=== PATIENT | female | born 1950 | race African-American/Black ===

== ENCOUNTER 2017-01-25 05:21 | Emergency (ER) | payer MEDICARE ==
[~2017-01-25] VITALS: Ht 165.1 cm; Wt 110.1 kg
[~2017-01-25 05:21] MED LIST: BRIM0.2S; CALA180T PO; DORZ1SOL2 OD; FORT500T3 PO; HYDR-3534 PO; HYDR-3535 PO; HYOS1SUB PO; IBUP800T23 PO; PROT40TA PO; ROXI5TAB4 PO; SIMV20 PO; SYNT125T PO; TIMO1SOL6 OP; TRIA.1%T TOP; VERA200C
[2017-01-25 05:40] VITALS: BP 206/107; PULSE 109; RESP 18; TEMP 99.2; O2SAT 96
[2017-01-25] MEDS ORDERED: METF500T PO (05:59)
[2017-01-25] MEDS ORDERED: ASPI1TAB69 PO (05:59)
[2017-01-25] MEDS ORDERED: SIMV20TA PO (06:00)
[2017-01-25] MEDS ORDERED: DICY20TA10 PO (06:00)
[2017-01-25] MEDS ORDERED: MELO-1 PO (06:01)
[2017-01-25] MEDS ORDERED: VERA1TAB17 PO (06:01)
[2017-01-25] MEDS ORDERED: LEVO-86 PO (06:03)
[2017-01-25] MEDS ORDERED: BRIM0.2S4 EACH EYE (06:04)
[2017-01-25] MEDS ORDERED: DORZ2SOL15 LEFT EYE (06:05)
[2017-01-25] MEDS ORDERED: CLOTCRE TOPICAL (06:08)
[2017-01-25] MEDS ORDERED: PROCHLORPERAZINE INJ 10 MG/2 ML VIAL IVS ONE (06:15)
[2017-01-25] MEDS ORDERED: SODIUM CHLOR 0.9% 1000 ML INJ 1,000 ML IV ONE (06:15)
[2017-01-25] MEDS ORDERED: diphenhydrAMINE HCL 50 MG/ML VIAL IV PUSH ONE (06:15)
[2017-01-25] MEDS ORDERED: PROM25TA5 PO (06:20)
--- NOTE | 2017-01-25 06:21 | PD ---
HPI . Vomiting Chief Complaint: GI Complaint Time Seen by Provider: 06:03 Travel History International Travel<30 days: No Contact w/Intl Traveler<30days: No Traveled to known affect area: No History of Present Illness HPI Patient presents saying that she's vomited about 12 times last 24 hours. She states that she had been constipated since some milk of magnesia yesterday. She subsequently developed loose stools and vomiting. She has had no fever. She states that she has IBS. [id number]: Abdominal DURATION: 24 hours TIMING: Continuously CONTEXT: Symptoms started after taking milk of magnesia constipation PFSH Past Medical History Hx Anticoagulant Therapy: Yes Arthritis: Yes Cancer: No Cardiovascular Problems: Yes COPD: Yes Diabetes: Yes Patient Takes Glucophage: Yes (01/23/17 at 0900) Diminished Hearing: No Endocrine: Yes Gastrointestinal Disorders: Yes (GERD, IRRATABLE BOWEL) Glaucoma: Yes Genitourinary: No Hepatitis: No Hiatal Hernia: No Hypertension: Yes Immune Disorder: No Musculoskeletal: Yes (ARTHRITIS) Neurologic: Yes (DEXTER'S PALSY, NEUROPATHY FINGER TIPS) Psychiatric: Yes (SEVERE CLAUSTRAPHOBIA/ ANXIETY) Reproductive: No Respiratory: Yes Thyroid Disease: Yes Tetanus Vaccination: > 5 Years Influenza Vaccination: No ?: Not Menopausal: Yes Past Surgical History AICD: No Joint Replacement: No Pacemaker: No Tonsillectomy: Yes Other Surgery: Yes Social History Alcohol Use: No Tobacco Use: No Substance Use: No Allergies-Medications (Allergen,Severity, Reaction): Coded Allergies: Morphine (Verified Allergy, Severe, 01/25/17) NAUSEA OR HIVES/ CAN'T REMEMBER Penicillin (Verified Allergy, Severe, 01/25/17) NAUSEA OR HIVES/ CAN'T REMEMBER Reported Meds & Prescriptions Reported Meds & Active Scripts Active Reported Clotrimazole-Betamethasone Topical (Betamethasone/Clotrimazole) 1-0.05% Cream 1 Applic TOPICAL BID PRN Dorzolamide-Timolol Opth Drops 22.3-6.8 Mg/Ml Soln 1 Drop LEFT EYE BID Brimonidine Opth Drops (Brimonidine Tartrate) 0.2% Soln 1 Drop EACH EYE BID Synthroid (Levothyroxine Sodium) 137 Mcg Tab 137 Mcg PO DAILY Meloxicam 15 Mg Tab 15 Mg PO DAILY PRN Verapamil ER 24 HR (Verapamil HCl) 240 Mg Tab 240 Mg PO HS Simvastatin 20 Mg Tab 20 Mg PO DAILY Dicyclomine (Dicyclomine HCl) 20 Mg Tab 20 Mg PO QID Aspirin 81 Mg Tabdr 81 Mg PO DAILY Metformin (Metformin HCl) 500 Mg Tab 500 Mg PO DAILY With a meal Review of Systems Except as stated in HPI: all other systems reviewed are Neg General / Constitutional: No: Fever, Chills Gastrointestinal: Positive: Nausea, Vomiting, Diarrhea, Abdominal Pain Genitourinary: No: Urgency, Frequency, Dysuria Physical Exam Narrative GENERAL: Healthy-appearing woman in no acute distress. SKIN: Warm and dry. HEAD: Atraumatic. Normocephalic. EYES: Pupils equal and round. ENT: No nasal bleeding or discharge. Mucous membranes pink and moist. NECK: Trachea midline. CARDIOVASCULAR: Regular rate and rhythm. Heart sounds are normal. RESPIRATORY: No accessory muscle use. Lungs are clear with full air movement throughout. GASTROINTESTINAL: Abdomen soft, non-tender, nondistended. MUSCULOSKELETAL: No obvious deformities. No edema. NEUROLOGICAL: Awake and alert. No obvious cranial nerve deficits. Motor grossly within normal limits. Normal speech. PSYCHIATRIC: Appropriate mood and affect; insight and judgment normal. Data Data Last Documented VS Vital Signs Date Time Temp Pulse Resp B/P Pulse Ox O2 Delivery O2 Flow Rate FiO2 01/25/17 05:40 99.2 109 18 206/107 96 Orders Sodium Chlor 0.9% 1000 Ml Inj (Ns 1000 M (01/25/17 06:15) Prochlorperazine Inj (Compazine Inj) (01/25/17 06:15) Diphenhydramine Inj (Benadryl Inj) (01/25/17 06:15) [facility] Medical Decision Making Medical Screen Exam Complete: Yes Emergency Medical Condition: Yes Differential Diagnosis Differential diagnosis includes but is not limited to viral gastritis, food poisoning, pancreatitis, pneumonia, hepatitis, acute coronary syndrome, Narrative Course Patient presents complaining with vomiting and diarrhea after taking milk of magnesia yesterday for constipation. I will give her a liter of fluid and some IV Compazine/Benadryl and then discharge her to home. Clinically, she is not dehydrated. She has a benign abdominal exam. Diagnosis Primary Impression: Gastroenteritis Patient Instructions: Gastroenteritis (DC), General Instructions Med/Other Pt SpecificInfo: Prescription(s) given Scripts Promethazine (Phenergan)25 Mg Tab25 Mg PO Q6H PRN (Nausea/Vomiting) #10 TAB Ref 0 Prov:Radha Beckman MD 01/25/17 Disposition: 01 DISCHARGE HOME Condition: Stable Radha Beckman MD Jan 25, 2017 06:20
[2017-01-25 06:40] VITALS: BP 164/97; PULSE 98; RESP 18; O2SAT 98
[2017-01-25 08:11] VITALS: BP 170/89
== END 2017-01-25 08:12 | disposition home or self-care (01) ==
LOC: PHED 05:21
DX: K52.9 Noninfective gastroenteritis and colitis, unspecified (principal); E11.9 Type 2 diabetes mellitus without complications; I10 Essential (primary) hypertension; J44.9 Chronic obstructive pulmonary disease, unspecified; M19.90 Unspecified osteoarthritis, unspecified site; Z79.01 Long term (current) use of anticoagulants
CPT/HCPCS: 96361; 96374; 96375; 99283; J0780; J1200; J7030

== ENCOUNTER 2017-01-26 20:45 | Inpatient (IN) | payer MEDICARE ==
[~2017-01-26] VITALS: Ht 165.1 cm; Wt 109.2 kg
[~2017-01-26 20:45] MED LIST changes: +ASPI1TAB69 PO; -BRIM0.2S; +BRIM0.2S4 EACH EYE; -CALA180T PO; +CLOTCRE TOPICAL; +DICY20TA10 PO; -DORZ1SOL2 OD; +DORZ2SOL15 LEFT EYE; -FORT500T3 PO; -HYDR-3534 PO; -HYDR-3535 PO; -HYOS1SUB PO; -IBUP800T23 PO; +LEVO-86 PO; +MELO-1 PO; +METF500T PO; +PROM25TA5 PO; -PROT40TA PO; -ROXI5TAB4 PO; -SIMV20 PO; +SIMV20TA PO; -SYNT125T PO; -TIMO1SOL6 OP; -TRIA.1%T TOP; +VERA1TAB17 PO; -VERA200C
[2017-01-26 20:57] VITALS: BP 156/126; PULSE 116; RESP 16; TEMP 98; O2SAT 98
[2017-01-26 23:31] VITALS: BP 95/62; PULSE 93; RESP 18; TEMP 98; O2SAT 94
--- NOTE | 2017-01-26 23:56 | PD ---
HPI Chief Complaint: GI Complaint Time Seen by Provider: 23:38 Travel History International Travel<30 days: No Contact w/Intl Traveler<30days: No Traveled to known affect area: No History of Present Illness HPI 66yo F with PMH of IBS, COPD presents to the ED with c/o black stool since yesterday. Pt also with generalized abdominal pain for 3 days and was seen here on 01/25/17 for this complaint. Pt was given compazine and benadryl and discharge with impression of gastroenteritis. +NBNB vomiting yesterday. Denies any fever, chest pain, sob, urinary complaints. States the black stool is watery. Denies any urinary complaints. Last colonscopy and endoscopy was 2012. PFSH Past Medical History Hx Anticoagulant Therapy: Yes Arthritis: Yes Cancer: No Cardiovascular Problems: Yes (HTN) COPD: Yes Diabetes: Yes (on metformin) Patient Takes Glucophage: Yes Diminished Hearing: No Endocrine: Yes Gastrointestinal Disorders: Yes (GERD, IRRATABLE BOWEL) Glaucoma: Yes Genitourinary: No Hepatitis: No Hiatal Hernia: No Hypertension: Yes Immune Disorder: No Medical other: No Musculoskeletal: Yes (ARTHRITIS) Neurologic: Yes (DEXTER'S PALSY, NEUROPATHY FINGER TIPS) Psychiatric: Yes (SEVERE CLAUSTRAPHOBIA/ ANXIETY) Reproductive: No Respiratory: Yes (copd) Thyroid Disease: Yes Tetanus Vaccination: Unknown Influenza Vaccination: No ?: Not Menopausal: Yes Past Surgical History AICD: No Joint Replacement: No Pacemaker: No Tonsillectomy: Yes Other Surgery: Yes Social History Alcohol Use: No Tobacco Use: No Substance Use: No Allergies-Medications (Allergen,Severity, Reaction): Coded Allergies: Morphine (Verified Allergy, Severe, 01/25/17) NAUSEA OR HIVES/ CAN'T REMEMBER Penicillin (Verified Allergy, Severe, 01/25/17) NAUSEA OR HIVES/ CAN'T REMEMBER Reported Meds & Prescriptions Reported Meds & Active Scripts Active Phenergan (Promethazine HCl) 25 Mg Tab 25 Mg PO Q6H PRN Reported Clotrimazole-Betamethasone Topical (Betamethasone/Clotrimazole) 1-0.05% Cream 1 Applic TOPICAL BID PRN Dorzolamide-Timolol Opth Drops 22.3-6.8 Mg/Ml Soln 1 Drop LEFT EYE BID Brimonidine Opth Drops (Brimonidine Tartrate) 0.2% Soln 1 Drop EACH EYE BID Synthroid (Levothyroxine Sodium) 137 Mcg Tab 137 Mcg PO DAILY Meloxicam 15 Mg Tab 15 Mg PO DAILY PRN Verapamil ER 24 HR (Verapamil HCl) 240 Mg Tab 240 Mg PO HS Simvastatin 20 Mg Tab 20 Mg PO DAILY Dicyclomine (Dicyclomine HCl) 20 Mg Tab 20 Mg PO QID Aspirin 81 Mg Tabdr 81 Mg PO DAILY Metformin (Metformin HCl) 500 Mg Tab 500 Mg PO DAILY With a meal Review of Systems Except as stated in HPI: all other systems reviewed are Neg Physical Exam Narrative GENERAL: 66yo F not in distress. SKIN: Warm and dry. HEAD: Atraumatic. Normocephalic. EYES: Pupils equal and round. No scleral icterus. No injection or drainage. ENT: No nasal bleeding or discharge. Mucous membranes pink and moist. NECK: Trachea midline. No JVD. CARDIOVASCULAR: Regular rate and rhythm. No murmur appreciated. RESPIRATORY: No accessory muscle use. Clear to auscultation. Breath sounds equal bilaterally. GASTROINTESTINAL: Abdomen soft, +TTP epigastric region. No rebound tenderness or guarding. RECTAL: Small amount of black stool, +Hemaprompt. MUSCULOSKELETAL: No obvious deformities. No clubbing. No cyanosis. No edema. NEUROLOGICAL: Awake and alert. No obvious cranial nerve deficits. Motor grossly within normal limits. Normal speech. PSYCHIATRIC: Appropriate mood and affect; insight and judgment normal. Data Data Last Documented VS Vital Signs Date Time Temp Pulse Resp B/P Pulse Ox O2 Delivery O2 Flow Rate FiO2 01/27/17 04:37 98.0 82 20 106/75 100 Room Air Orders Basic Metabolic Panel (Bmp) (01/26/17 23:47) Complete Blood Count With Diff (01/26/17 23:47) Lipase (01/26/17 23:47) Prothrombin Time / Inr (Pt) (01/26/17 23:47) Act Partial Throm Time (Ptt) (01/26/17 23:47) Urinalysis - C+S If Indicated (01/26/17 23:47) Type And Screen (01/26/17 23:47) Ecg Monitoring (01/26/17 23:47) Iv Access Insert/Monitor (01/26/17 23:47) Oximetry (01/26/17 23:47) Ondansetron Inj (Zofran Inj) (01/27/17 00:00) Sodium Chloride 0.9% Flush (Ns Flush) (01/27/17 00:00) Pantoprazole Inj (Protonix Inj) (01/27/17 00:00) Pantoprazole Inj (Protonix Inj) (01/27/17 00:00) Electrocardiogram (01/26/17 ) Sodium Chlor 0.9% 1000 Ml Inj (Ns 1000 M (01/27/17 00:00) Consult Gastroenterology (01/26/17 ) (Hub Use Only)Inp Phy Cons/Ref (01/27/17 ) Ct Abd/Pel W/O Iv Contrast (01/26/17 ) Blood Culture (01/27/17 02:37) Lactic Acid (01/27/17 02:37) Cath For Specimen (01/27/17 02:45) Ckmb (Isoenzyme) Profile (01/27/17 00:20) Hepatic Functional Panel (01/27/17 00:20) Magnesium (Mg) (01/27/17 00:20) Troponin I (01/27/17 00:20) CKMB (01/27/17 00:20) CKMB% (01/27/17 00:20) Chest, Single Ap (01/27/17 ) Aztreonam Inj (Azactam Inj) (01/27/17 05:00) Urine Culture (01/27/17 04:11) Metronidazole 500 Mg Inj (Flagyl 500 Mg (01/27/17 05:00) Vancomycin Inj (Vancomycin Inj) (01/27/17 05:00) Sodium Chlor 0.9% 1000 Ml Inj (Ns 1000 M (01/27/17 05:00) Admit Order (Ed Use Only) (01/27/17 ) ^ Saline Lock (01/27/17 05:26) Resp Oxygen Jaun C Titrat 1-4 L (01/27/17 ) ^ Notify Dr: Other (01/27/17 05:26) Sodium Chloride 0.9% Flush (Ns Flush) (01/27/17 09:00) Sodium Chloride 0.9% Flush (Ns Flush) (01/27/17 05:30) Labs Laboratory Tests Test 01/27/17 01/27/17 01/27/17 00:20 03:55 04:11 White Blood Count 25.5 TH/MM3 Red Blood Count 4.80 MIL/MM3 Hemoglobin 11.7 GM/DL Hematocrit 36.4 % Mean Corpuscular Volume 75.9 FL Mean Corpuscular Hemoglobin 24.4 PG Mean Corpuscular Hemoglobin 32.2 % Concent Red Cell Distribution Width 17.8 % Platelet Count 317 TH/MM3 Mean Platelet Volume 9.3 FL Neutrophils (%) (Auto) % Lymphocytes (%) (Auto) % Monocytes (%) (Auto) % Eosinophils (%) (Auto) % Basophils (%) (Auto) % Neutrophils # (Auto) TH/MM3 Lymphocytes # (Auto) TH/MM3 Monocytes # (Auto) TH/MM3 Eosinophils # (Auto) TH/MM3 Basophils # (Auto) TH/MM3 CBC Comment AUTO DIFF Differential Total Cells 100 Counted Neutrophils % (Manual) 73 % Lymphocytes % 19 % Monocytes % 6 % Basophils % 2 % Neutrophils # (Manual) 18.6 TH/MM3 Differential Comment FINAL DIFF MANUAL Platelet Estimate NORMAL Platelet Morphology Comment CLUMPED Prothrombin Time 10.7 SEC Prothromb Time International 1.0 RATIO Ratio Activated Partial 22.2 SEC Thromboplast Time Sodium Level 137 MEQ/L Potassium Level 4.0 MEQ/L Chloride Level 98 MEQ/L Carbon Dioxide Level 26.6 MEQ/L Anion Gap 12 MEQ/L Blood Urea Nitrogen 67 MG/DL Creatinine 2.30 MG/DL Estimat Glomerular Filtration 26 ML/MIN Rate Random Glucose 113 MG/DL Calcium Level 9.4 MG/DL Magnesium Level 2.0 MG/DL Total Bilirubin 0.3 MG/DL Direct Bilirubin 0.1 MG/DL Indirect Bilirubin 0.2 MG/DL Aspartate Amino Transf 17 U/L (AST/SGOT) Alanine Aminotransferase 15 U/L (ALT/SGPT) Alkaline Phosphatase 82 U/L Total Creatine Kinase 350 U/L Creatine Kinase MB 3.2 NG/ML Creatine Kinase MB % 0.9 % Troponin I 0.19 NG/ML Total Protein 7.2 GM/DL Albumin 3.6 GM/DL Lipase 135 U/L Blood Type O NEGATIVE Antibody Screen NEGATIVE Lactic Acid Level 1.7 mmol/L Urine Color YELLOW Urine Turbidity MOD Urine pH 5.5 Urine Specific [place] 1.021 Urine Protein 30 mg/dL Urine Glucose (UA) NEG mg/dL Urine Ketones TRACE mg/dL Urine Occult Blood TRACE Urine Nitrite NEG Urine Bilirubin NEG Urine Leukocyte Esterase SMALL Urine RBC 0-3 /hpf Urine WBC 15-19 /hpf Urine Squamous Epithelial 6-8 /hpf Cells Urine Amorphous Sediment MOD Urine Bacteria FEW /hpf Urine Hyaline Casts 25-49 /lpf Urine Mucus MOD /lpf Microscopic Urinalysis Comment CULTURE INDICATED MDM Medical Decision Making Medical Screen Exam Complete: Yes Emergency Medical Condition: Yes Differential Diagnosis GI bleed secondary to AVM vs. diverticulitis vs. infectious colitis Narrative Course 66yo F with abdominal pain and black stool. Positive hemaprompt. Will obtain labs, EKG, UA, CTa/p and start IV protonix bolus and then drip. Abdominal exam significant for mild tenderness in epigastric region. BP is low at 95/62. HR 93. IVF NS ordered. Pt was seen at end of my shift so care is transferred to next team Dr. Moss. HemaPrompt Point of Care Internal Pos. & Neg. Controls: Passed Fecal Specimen Occult Blood: Positive Diagnosis Primary Impression: GI bleed Qualified Code: K92.2 - Gastrointestinal hemorrhage, unspecified gastrointestinal hemorrhage type Admitting Information Admitting Physician Requests: Admit Kelly Grijalva DO Jan 26, 2017 23:56
[2017-01-27] VITALS (9 sets, daily range): BP systolic 106–185; BP diastolic 57–81; PULSE 80–104; RESP 16–20; TEMP 97–98.1; O2SAT 95–100
[2017-01-27] MEDS ORDERED: SODIUM CHLOR 0.9% 1000 ML INJ 1,000 ML IV ONE
[2017-01-27] MEDS ORDERED: PANTOPRAZOLE INJ 80 MG in SODIUM CHLORIDE 0.9% INJ 35 ML IV ONE ×2
[2017-01-27] MEDS ORDERED: ONDANSETRON HCL 4 MG/2 ML VIAL IVP ONE
--- NOTE | 2017-01-27 00:07 | PD ---
Physical Exam Date Seen by Provider: Jan 27, 2017 Time Seen by Provider: 00:06 Narrative Accepted in transfer of care from Dr. Grijalva GENERAL: Well-developed well-nourished female in no acute distress no respiratory distress SKIN: Warm and dry. HEAD: Normocephalic. EYES: No scleral icterus. No injection or drainage. NECK: Supple, trachea midline. No JVD or lymphadenopathy. CARDIOVASCULAR: Regular rate and rhythm without murmurs, gallops, or rubs. RESPIRATORY: Breath sounds equal bilaterally. No accessory muscle use. GASTROINTESTINAL: Abdomen soft, non-tender, nondistended. MUSCULOSKELETAL: No cyanosis, or edema. BACK: Nontender without obvious deformity. No CVA tenderness. Data Data Last Documented VS Vital Signs Date Time Temp Pulse Resp B/P Pulse Ox O2 Delivery O2 Flow Rate FiO2 01/27/17 04:37 98.0 82 20 106/75 100 Room Air Orders Basic Metabolic Panel (Bmp) (01/26/17 23:47) Complete Blood Count With Diff (01/26/17 23:47) Lipase (01/26/17 23:47) Prothrombin Time / Inr (Pt) (01/26/17 23:47) Act Partial Throm Time (Ptt) (01/26/17 23:47) Urinalysis - C+S If Indicated (01/26/17 23:47) Type And Screen (01/26/17 23:47) Ecg Monitoring (01/26/17 23:47) Iv Access Insert/Monitor (01/26/17 23:47) Oximetry (01/26/17 23:47) Ondansetron Inj (Zofran Inj) (01/27/17 00:00) Sodium Chloride 0.9% Flush (Ns Flush) (01/27/17 00:00) Pantoprazole Inj (Protonix Inj) (01/27/17 00:00) Pantoprazole Inj (Protonix Inj) (01/27/17 00:00) Electrocardiogram (01/26/17 ) Sodium Chlor 0.9% 1000 Ml Inj (Ns 1000 M (01/27/17 00:00) Consult Gastroenterology (01/26/17 ) (Hub Use Only)Inp Phy Cons/Ref (01/27/17 ) Ct Abd/Pel W/O Iv Contrast (01/26/17 ) Blood Culture (01/27/17 02:37) Lactic Acid (01/27/17 02:37) Cath For Specimen (01/27/17 02:45) Ckmb (Isoenzyme) Profile (01/27/17 00:20) Hepatic Functional Panel (01/27/17 00:20) Magnesium (Mg) (01/27/17 00:20) Troponin I (01/27/17 00:20) CKMB (01/27/17 00:20) CKMB% (01/27/17 00:20) Chest, Single Ap (01/27/17 ) Aztreonam Inj (Azactam Inj) (01/27/17 05:00) Urine Culture (01/27/17 04:11) Metronidazole 500 Mg Inj (Flagyl 500 Mg (01/27/17 05:00) Vancomycin Inj (Vancomycin Inj) (01/27/17 05:00) Sodium Chlor 0.9% 1000 Ml Inj (Ns 1000 M (01/27/17 05:00) Admit Order (Ed Use Only) (01/27/17 ) ^ Saline Lock (01/27/17 05:26) Resp Oxygen Jaun C Titrat 1-4 L (01/27/17 ) ^ Notify Dr: Other (01/27/17 05:26) Sodium Chloride 0.9% Flush (Ns Flush) (01/27/17 09:00) Sodium Chloride 0.9% Flush (Ns Flush) (01/27/17 05:30) Labs Laboratory Tests Test 01/27/17 01/27/17 01/27/17 00:20 03:55 04:11 White Blood Count 25.5 TH/MM3 Red Blood Count 4.80 MIL/MM3 Hemoglobin 11.7 GM/DL Hematocrit 36.4 % Mean Corpuscular Volume 75.9 FL Mean Corpuscular Hemoglobin 24.4 PG Mean Corpuscular Hemoglobin 32.2 % Concent Red Cell Distribution Width 17.8 % Platelet Count 317 TH/MM3 Mean Platelet Volume 9.3 FL Neutrophils (%) (Auto) % Lymphocytes (%) (Auto) % Monocytes (%) (Auto) % Eosinophils (%) (Auto) % Basophils (%) (Auto) % Neutrophils # (Auto) TH/MM3 Lymphocytes # (Auto) TH/MM3 Monocytes # (Auto) TH/MM3 Eosinophils # (Auto) TH/MM3 Basophils # (Auto) TH/MM3 CBC Comment AUTO DIFF Differential Total Cells 100 Counted Neutrophils % (Manual) 73 % Lymphocytes % 19 % Monocytes % 6 % Basophils % 2 % Neutrophils # (Manual) 18.6 TH/MM3 Differential Comment FINAL DIFF MANUAL Platelet Estimate NORMAL Platelet Morphology Comment CLUMPED Prothrombin Time 10.7 SEC Prothromb Time International 1.0 RATIO Ratio Activated Partial 22.2 SEC Thromboplast Time Sodium Level 137 MEQ/L Potassium Level 4.0 MEQ/L Chloride Level 98 MEQ/L Carbon Dioxide Level 26.6 MEQ/L Anion Gap 12 MEQ/L Blood Urea Nitrogen 67 MG/DL Creatinine 2.30 MG/DL Estimat Glomerular Filtration 26 ML/MIN Rate Random Glucose 113 MG/DL Calcium Level 9.4 MG/DL Magnesium Level 2.0 MG/DL Total Bilirubin 0.3 MG/DL Direct Bilirubin 0.1 MG/DL Indirect Bilirubin 0.2 MG/DL Aspartate Amino Transf 17 U/L (AST/SGOT) Alanine Aminotransferase 15 U/L (ALT/SGPT) Alkaline Phosphatase 82 U/L Total Creatine Kinase 350 U/L Creatine Kinase MB 3.2 NG/ML Creatine Kinase MB % 0.9 % Troponin I 0.19 NG/ML Total Protein 7.2 GM/DL Albumin 3.6 GM/DL Lipase 135 U/L Blood Type O NEGATIVE Antibody Screen NEGATIVE Lactic Acid Level 1.7 mmol/L Urine Color YELLOW Urine Turbidity MOD Urine pH 5.5 Urine Specific [place] 1.021 Urine Protein 30 mg/dL Urine Glucose (UA) NEG mg/dL Urine Ketones TRACE mg/dL Urine Occult Blood TRACE Urine Nitrite NEG Urine Bilirubin NEG Urine Leukocyte Esterase SMALL Urine RBC 0-3 /hpf Urine WBC 15-19 /hpf Urine Squamous Epithelial 6-8 /hpf Cells Urine Amorphous Sediment MOD Urine Bacteria FEW /hpf Urine Hyaline Casts 25-49 /lpf Urine Mucus MOD /lpf Microscopic Urinalysis Comment CULTURE INDICATED MDM Medical Record Reviewed: Yes Supervised Visit with JUANIAT: No Interpretation(s) EKG: Normal sinus rhythm rate 98 left bundle branch block Differential Diagnosis Accepted in transfer of care from Dr. Grijalva; please refer to her dictation Narrative Course Accepted in transfer of care from Dr. Grijalva with plan to admit for GI bleed; labs pending Patient identified to have elevated renal function normal saline bolus administered Transient hypotension improved with IV fluid bolus Patient was leukocytosis and stable hemoglobin No further vomiting or diarrhea in the emergency department Lab values resulted identified to have elevated troponin I of 0.19, must consider elevation may reflect renal function will be affected by renal function no comparison renal function identified; no chest pain no shortness of breath history of left bundle branch block; patient does have risk factor for heart disease having diabetes presenting with atypical ACS/angina however in view of Hemoccult positive stool with black stools by history concern for GI bleed addressed with Protonix and will obtain serial hemoglobins as well as serial cardiac enzymes Case discussed with on-call medicine physician with plan to admit for ongoing IV fluid hydration IV antibiotic reassessment of renal function cardiac enzymes and hemoglobin with consult to GI in a.m. antibiotics administered presumptively. Patient clinically improved sitting at bedside and able to ambulate independently to bathroom; No further nausea vomiting or diarrhea; patient is aware of plan for admission for further management and is agreeable to the admission plan. Critical Care Narrative Aggregate critical care time was 50 minutes. Time to perform other separately billable procedures was not included in the critical care time. My time did not include minutes spent treating any other patients simultaneously or on activities that did not directly contribute to the patient's treatment. The services I provided to this patient were to treat and/or prevent clinically significant deterioration that could result in: Septic shock, GI bleed, arrhythmia, I provided critical care services requiring my management, as noted below: Chart data review, documentation time, medication orders and management, vital sign assessments/reviewing monitor data, ordering and reviewing lab tests, ordering and interpreting/reviewing x-rays and diagnostic studies, care of the patient and discussion of the patient with the admitting physicians. Sepsis Criteria SIRS Criteria (2 or more): Heart rate over 90, WBC > 08415, < 4000 or > 10% bands Sepsis Criteria (SIRS+source): Infect source susp/known Physician Communication Physician Communication discussed with Dr Prado --will admit to [facility] to [facility] Diagnosis Primary Impression: Leukocytosis Additional Impressions: Acute kidney injury Elevated troponin I level Gastroenteritis GI bleed History of left bundle branch block (LBBB) Sepsis UTI (urinary tract infection) Admitting Information Admitting Physician Requests: Admit Abi Moss MD Jan 27, 2017 00:07
[2017-01-27 00:56] LABS: HEMATOCRIT 36.4 % (35.0-46.0); MEAN CELL VOLUME 75.9 FL (80.0-100.0); MEAN CORPUSCULAR HEMOGLOBIN 24.4 PG (27.0-34.0); MEAN CORPUSCULAR HGB CONC 32.2 % (32.0-36.0); PLATELET COUNT 317 TH/MM3 (150-450); RED CELL DISTRIBUTION WIDTH 17.8 % (11.6-17.2); WHITE BLOOD COUNT 25.5 TH/MM3 (4.0-11.0)
[2017-01-27 00:58] LABS: HEMO FLAGS AUTO DIFF
[2017-01-27 00:59] LABS: BICARBONATE 26.6 MEQ/L (21.0-32.0)
[2017-01-27 01:01] LABS: APTT (PATIENT) 22.2 SEC (24.3-30.1); PROTHROMBIN TIME - PATIENT 10.7 SEC (9.8-11.6)
[2017-01-27] MEDS: PANTOPRAZOLE INJ 80 MG in SODIUM CHLORIDE 0.9% INJ 100 ML IV SCH ×3 (01:02→22:20)
[2017-01-27 01:24] LABS: BASOPHILS 2 % (0-2); NEUTROPHIL # MANUAL DIFF 18.6 TH/MM3 (1.8-7.7); POLYS (SEG NEUTROPHILS) 73 % (16-70); WBC DIFF SAMPLE 100
[2017-01-27 01:26] LABS: PLATELET ESTIMATE SMEAR NORMAL (NORMAL); PLATELET MORPHOLOGY CLUMPED (NORMAL); SCAN/DIFF FINAL DIFF MANUAL
--- NOTE | 2017-01-27 02:19 | RADHPO ---
EXAM DATE/TIME: 01/27/2017 01:25 This report includes an Addendum and supersedes previous reports for this exam. [facility] COMPARISON: No previous studies available for comparison. INDICATIONS : Abdominal pain. Black stool. ORAL CONTRAST: No oral contrast ingested. RADIATION DOSE: 22.25 CTDIvol (mGy) MEDICAL HISTORY : Gastroesophageal reflux disease. Irritable bowel syndrome. Hypertension.Diabetes. Chronic obstructive pulmonary disease. SURGICAL HISTORY : None. ENCOUNTER: Initial ACUITY: 3 days PAIN SCALE: 8/10 LOCATION: Bilateral Abdomen. TECHNIQUE: Volumetric scanning of the abdomen and pelvis was performed. Using automated exposure control and ad justment of the mA and/or kV according to patient size, radiation dose was kept as low as reasonably achievable to obtain optimal diagnostic quality images. FINDINGS: LOWER LUNGS: 9 mm x 7 mm pulmonary parenchymal nodule in the left lower lung on image #5. LIVER: Homogeneous density without lesion. There is no dilation of the biliary tree. No calcified gallston es. SPLEEN: Normal size without lesion. PANCREAS: Mild indistinctness of the pancreatic body indicating possible early findings of acute pancreatitis. No fluid collections. KIDNEYS: Punctate nonobstructing calculus in the upper pole on the right. No evidence of hydronephrosis. ADRENAL GLANDS: 2.1 cm left adrenal nodule with negative Hounsfield unit values indicating an adenoma. VASCULAR: Aortic calcification. Normal diameter. BOWEL/MESENTERY: Hiatal hernia, small. Scattered colonic diverticula. No evidence of acute diverticulitis. Appendix wi thin normal limits. No free air or free fluid. ABDOMINAL WALL: Within normal limits. RETROPERITONEUM: There is no lymphadenopathy. BLADDER: Nondistended. The REPRODUCTIVE: Within normal limits. INGUINAL: There is no lymphadenopathy or hernia. MUSCULOSKELETAL: Prominent arthrosis of the lower lumbar spine facet joints. CONCLUSION: 1. Mild indistinctness of the pancreatic body indicating possible acute pancreatitis. 2. Nonobstructing punctate right renal calculus. 3. Small hiatal hernia. 4. Colonic diverticula but no evidence of acute diverticulitis. 5. Prominent lumbar spine facet arthrosis. Lew Norwood MD on January 27, 2017 at 2:07 Board Certified Radiologist. This report was verified electronically. ADDENDUM: 9 mm nodular density in the left lung base as mentioned in the findings. Recommend three-month follow up chest CT without contrast. Lew Norwood MD on January 27, 2017 at 4:39 Board Certified Radiologist. This report was verified electronically.
[2017-01-27 03:02] LABS: TOTAL BILIRUBIN ADULT 0.3 MG/DL (0.2-1.0)
[2017-01-27 03:03] LABS: INDIRECT BILIRUBIN 0.2 MG/DL (0.0-0.8)
[2017-01-27 03:15] LABS: CKMB 3.2 NG/ML (0.5-3.6)
[2017-01-27 04:48] LABS: BLOOD, URINE TRACE (NEG); GLUCOSE,URINE NEG (NEG); KETONE, URINE TRACE mg/dL (NEG); NITRITE,URINE NEG (NEG); PH, URINE 5.5 (5.0-8.5)
[2017-01-27 04:57] LABS: URINE COLOR YELLOW (YELLW/STRAW)
[2017-01-27 04:58] LABS: MUCUS URINE MOD /lpf (OCC)
[2017-01-27 04:59] LABS: WBC, URINE 15-19 /hpf (0-5)
[2017-01-27 05:00] LABS: BACTERIA, URINE FEW /hpf; COMMENT (UR) CULTURE INDICATED; CULTURE IF INDICATED CULTURE INDICATED; RBC, URINE 0-3 /hpf (0-3)
[2017-01-27] MEDS ORDERED: metroNIDAZOLE 500 MG INJ 100 ML IV ONE (05:00)
[2017-01-27] MEDS ORDERED: AZTREONAM INJ 2,000 MG in SODIUM CHLORIDE 0.9% INJ 100 ML IV ONE (05:00)
[2017-01-27] MEDS ORDERED: VANCOMYCIN INJ 1,000 MG in SODIUM CHLOR 0.9% 250 ML INJ 250 ML IV ONE (05:00)
[2017-01-27] MEDS ORDERED: SODIUM CHLORIDE 0.9% FLUSH 5 ML FLUSH IVF PRN ×2 (05:30)
[2017-01-27] MEDS ORDERED: ACETAMINOPHEN 325 MG TAB PO PRN (05:30)
[2017-01-27] MEDS ORDERED: NALOXONE HCL 0.4 MG/ML AMP IV PRN (05:30)
[2017-01-27] MEDS ORDERED: ONDANSETRON HCL 4 MG/2 ML VIAL IVP PRN (05:30)
[2017-01-27] MEDS ORDERED: SODIUM CHLORIDE 0.9% FLUSH 5 ML FLUSH FLUSH PRN (05:30)
[2017-01-27] MEDS: SODIUM CHLOR 0.9% 1000 ML INJ 1,000 ML IV SCH ×4 (05:41→22:20)
--- NOTE | 2017-01-27 05:46 | RADHPO ---
EXAM DATE/TIME: 01/27/2017 05:34 [place] COMPARISON: CHEST SINGLE AP, December 03, 2012, 14:11. INDICATIONS : Nausea and vomiting. MEDICAL HISTORY : Chronic obstructive pulmonary disease. Gastroesophageal reflux disease. Diabetes mellitus type II. Hypertension. SURGICAL HISTORY : None. ENCOUNTER: Initial ACUITY: 1 day PAIN SCORE: 4/10 LOCATION: Bilateral chest FINDINGS: Single AP view of the chest. The lungs are clear. Cardiomediastinal silhouette within normal limits. No evidence of pleural effusion or pneumothorax. CONCLUSION: No acute cardiopulmonary disease identified. . Lew Norwood MD on January 27, 2017 at 5:43 Board Certified Radiologist. This report was verified electronically.
[2017-01-27 07:23] LABS: CKMB 3.7 NG/ML (0.5-3.6)
[2017-01-27] MEDS ORDERED: SODIUM CHLORIDE 0.9% FLUSH 5 ML FLUSH IVF SCH (09:00)
[2017-01-27] MEDS: SODIUM CHLORIDE 0.9% FLUSH 5 ML FLUSH FLUSH SCH ×2 (09:19→21:00)
[2017-01-27] MEDS ORDERED: DEXTROSE 50% IN WATER 50 ML VIAL(D50) IV PUSH PRN (12:00)
[2017-01-27] MEDS ORDERED: GLUCAGON 1 MG/ML VIAL OTHER PRN (12:00)
--- NOTE | 2017-01-27 12:07 | HHI.HP ---
HPI Service [facility] Hospitalists Primary Care Physician Non-Staff Admission Diagnosis sepsis; uti; KARLI; elevated troponinI Diagnoses: (1) Sepsis (2) UTI (urinary tract infection) (3) GI bleed (4) Elevated troponin I level (5) Acute kidney injury (6) Hypertension (7) Hypothyroid (8) Diabetes mellitus type II, controlled Chief Complaint: Generalized malaise and abdominal pain Travel History International Travel<30 Days: No Contact w/Intl Traveler <30 Da: No Traveled to Known Affected Are: No Sepsis Criteria SIRS Criteria (2 or more): Heart rate over 90, WBC > 40982, < 4000 or > 10% bands Sepsis Criteria (SIRS+source): Infect source susp/known Criteria Outcome: Meets SIRS criteria History of Present Illness 66 year-old -Malaysian female with a history of IBD, glaucoma and recent GI bleed discharged from [facility] ED on 01/25/17 return for evaluation of generalized malaise, abdominal pain related 6/10 in intensity of several day duration without any associated emesis, diarrhea. She had Hemoccult-positive for which GI was consulted. Her last colonoscopy 2012. Ago patient denies any urinary frequency and dysuria she was found to have abnormal UA. Patient denies any recent febrile episode however was found to have elevated white blood cell count. Review of Systems Other 12 systems reviewed and are negative except for the ones mentioned in history of present illness Past Family Social History Past Medical History Arthritis: Yes COPD: Yes Diabetes: Yes (on metformin) Endocrine: Yes Gastrointestinal Disorders: Yes (GERD, IBD) Glaucoma: Yes Hypertension: Yes Musculoskeletal: Yes (ARTHRITIS) Neurologic: Yes (DEXTER'S PALSY, NEUROPATHY FINGER TIPS) Psychiatric: Yes (SEVERE CLAUSTRAPHOBIA/ ANXIETY) Thyroid Disease: Yes Past Surgical History Left knee repair Tonsillectomy: Yes Reported Medications Phenergan (Promethazine HCl) 25 Mg Tab 25 Mg PO Q6H PRN Reported Clotrimazole-Betamethasone Topical (Betamethasone/Clotrimazole) 1-0.05% Cream 1 Applic TOPICAL BID PRN Dorzolamide-Timolol Opth Drops 22.3-6.8 Mg/Ml Soln 1 Drop LEFT EYE BID Brimonidine Opth Drops (Brimonidine Tartrate) 0.2% Soln 1 Drop EACH EYE BID Synthroid (Levothyroxine Sodium) 137 Mcg Tab 137 Mcg PO DAILY Meloxicam 15 Mg Tab 15 Mg PO DAILY PRN Verapamil ER 24 HR (Verapamil HCl) 240 Mg Tab 240 Mg PO HS Simvastatin 20 Mg Tab 20 Mg PO DAILY Dicyclomine (Dicyclomine HCl) 20 Mg Tab 20 Mg PO QID Aspirin 81 Mg Tabdr 81 Mg PO DAILY Metformin (Metformin HCl) 500 Mg Tab 500 Mg PO DAILY With a meal Allergies: Coded Allergies: Morphine (Verified Allergy, Severe, 01/25/17) NAUSEA OR HIVES/ CAN'T REMEMBER Penicillin (Verified Allergy, Severe, 01/25/17) NAUSEA OR HIVES/ CAN'T REMEMBER Family History Denies any family history of heart disease, cancer Social History Alcohol Use: No Tobacco Use: No Substance Use: No Physical Exam Vital Signs Vital Signs Date Time Temp Pulse Resp B/P Pulse Ox O2 Delivery O2 Flow Rate FiO2 01/27/17 10:17 100 21 01/27/17 09:15 104 16 128/60 100 Room Air 01/27/17 07:30 98.1 94 16 111/57 100 Room Air 01/27/17 07:29 16 01/27/17 05:43 98 21 01/27/17 04:37 98.0 82 20 106/75 100 Room Air 01/27/17 00:30 95 18 120/74 95 Room Air 01/26/17 23:34 18 01/26/17 23:31 98.0 93 18 95/62 94 01/26/17 20:57 98.0 116 16 156/126 98 Room Air Physical Exam GENERAL: This is a well-nourished, well-developed patient, in no apparent distress. SKIN: No rashes, ecchymoses or lesions. Cool and dry. HEAD: Atraumatic. Normocephalic. No temporal or scalp tenderness. EYES: Pupils equal round and reactive. Extraocular motions intact. No scleral icterus. No injection or drainage. ENT: Nose without bleeding, purulent drainage or septal hematoma. Throat without erythema, tonsillar hypertrophy or exudate. Uvula midline. Airway patent. NECK: Trachea midline. No JVD or lymphadenopathy. Supple, nontender, no meningeal signs. CARDIOVASCULAR: Regular rate and rhythm without murmurs, gallops, or rubs. RESPIRATORY: Clear to auscultation. Breath sounds equal bilaterally. No wheezes , rales, or rhonchi. GASTROINTESTINAL: Abdomen soft, non-tender, nondistended. No hepato-splenomegaly , or palpable masses. No guarding. MUSCULOSKELETAL: Extremities without clubbing, cyanosis, or edema. No joint tenderness, effusion, or edema noted. No calf tenderness. Negative Homans sign bilaterally. NEUROLOGICAL: Awake and alert. Cranial nerves II through XII intact. Motor and sensory grossly within normal limits. Five out of 5 muscle strength in all muscle groups. Normal speech. Laboratory Laboratory Tests Test 01/27/17 01/27/17 01/27/17 01/27/17 00:20 03:55 04:11 06:00 White Blood Count 25.5 Red Blood Count 4.80 Hemoglobin 11.7 Hematocrit 36.4 Mean Corpuscular Volume 75.9 Mean Corpuscular Hemoglobin 24.4 Mean Corpuscular Hemoglobin 32.2 Concent Red Cell Distribution Width 17.8 Platelet Count 317 Mean Platelet Volume 9.3 Neutrophils (%) (Auto) Lymphocytes (%) (Auto) Monocytes (%) (Auto) Eosinophils (%) (Auto) Basophils (%) (Auto) Neutrophils # (Auto) Lymphocytes # (Auto) Monocytes # (Auto) Eosinophils # (Auto) Basophils # (Auto) CBC Comment AUTO DIFF Differential Total Cells 100 Counted Neutrophils % (Manual) 73 Lymphocytes % 19 Monocytes % 6 Basophils % 2 Neutrophils # (Manual) 18.6 Differential Comment FINAL DIFF MANUAL Platelet Estimate NORMAL Platelet Morphology Comment CLUMPED Prothrombin Time 10.7 Prothromb Time International 1.0 Ratio Activated Partial 22.2 Thromboplast Time Sodium Level 137 Potassium Level 4.0 Chloride Level 98 Carbon Dioxide Level 26.6 Anion Gap 12 Blood Urea Nitrogen 67 Creatinine 2.30 Estimat Glomerular Filtration 26 Rate Random Glucose 113 Calcium Level 9.4 Magnesium Level 2.0 Total Bilirubin 0.3 Direct Bilirubin 0.1 Indirect Bilirubin 0.2 Aspartate Amino Transf 17 (AST/SGOT) Alanine Aminotransferase 15 (ALT/SGPT) Alkaline Phosphatase 82 Total Creatine Kinase 350 293 Creatine Kinase MB 3.2 3.7 Creatine Kinase MB % 0.9 1.3 Troponin I 0.19 0.27 Total Protein 7.2 Albumin 3.6 Lipase 135 Blood Type O NEGATIVE Antibody Screen NEGATIVE Lactic Acid Level 1.7 Urine Color YELLOW Urine Turbidity MOD Urine pH 5.5 Urine Specific [place] 1.021 Urine Protein 30 Urine Glucose (UA) NEG Urine Ketones TRACE Urine Occult Blood TRACE Urine Nitrite NEG Urine Bilirubin NEG Urine Leukocyte Esterase SMALL Urine RBC 0-3 Urine WBC 15-19 Urine Squamous Epithelial 6-8 Cells Urine Amorphous Sediment MOD Urine Bacteria FEW Urine Hyaline Casts 25-49 Urine Mucus MOD Microscopic Urinalysis Comment CULTURE INDICATED Date/Time Procedure Status Source Growth 01/27/17 04:11 Urine Culture Received Urine Clean Catch Pending 01/27/17 04:00 Aerobic Blood Culture Received Blood Peripheral Pending 01/27/17 04:00 Anaerobic Blood Culture Received Blood Peripheral Pending Result Diagram: 01/27/171901/27/1719 Assessment and Plan Problem List: (1) Sepsis ICD Code: A41.9 Status: Acute (2) UTI (urinary tract infection) ICD Code: N39.0 Status: Acute (3) GI bleed ICD Code: K92.2 Status: Acute (4) Acute kidney injury ICD Code: N17.9 Status: Acute (5) Elevated troponin I level ICD Code: R74.8 Status: Acute (6) Hypertension ICD Code: I10 Status: Chronic (7) Hypothyroid ICD Code: E03.9 Status: Chronic (8) Diabetes mellitus type II, controlled ICD Code: E11.9 Status: Chronic Assessment and Plan 66 years female with Sepsis :Meets sepsis criteria; Heart rate over 90, WBC > 56066, < 4000 or > 10% bands; source UTI. s/p Aztreonam, Flagyl and Vancomycin IV; Continue with Aztreonam. Chest x-ray noted and reviewed by me without any acute pulmonary disease. UTI: Continue with Aztreonam and follow urine culture GI bleed : Currently on Protonix on drip pending further evaluation from Gastroenterology; monitor H/H and transfuse for Hg<8.0 IBS: Abdomen CT /pelvics noted and reviewed by me with finding of possible acute pancreatitis however lipase within normal limit. Resume Bentyl pending further GI Acute renal Failure: prerenal , 2/2 dehydration vs Dehydration; Continue with IVF hydration and monitor Bun/Cr Elevated troponin I: likely 2/2 ARF vs sepsis (UTI); continue to monitor DM2: hold oral hypoglycemic agent; start Medium ISS with FSBG monitoring History Glaucoma: Resume outpatient medications Hypertension: Continue verapamil Hypothyroidism: Resume Synthroid DVT prophylaxis: Bilateral SCDs, chemical anti-prophylaxis is contraindicated Code Status Full code Discussed Condition With Patient Physician Certification 2 Midnight Certification Type: Admission for Inpatient Services Order for Inpatient Services The services are ordered in accordance with Medicare regulations or non- Medicare payer requirements, as applicable. In the case of services not specified as inpatient-only, they are appropriately provided as inpatient services in accordance with the 2-midnight benchmark. Estimated LOS (days): 2 days is the estimated time the patient will need to remain in the hospital, assuming treatment plan goals are met and no additional complications. Post-Hospital Plan: Not yet determined Problem Qualifiers (1) GI bleed: Qualified Code: K92.2 - Gastrointestinal hemorrhage, unspecified gastrointestinal hemorrhage type Faizan Ardon MD Jan 27, 2017 12:07
[2017-01-27] MEDS ORDERED: RESP: ALBUTEROL 2.5 MG/IPRATROPIUM 0.5 MG NEB (PRN) NEB (12:45)
[2017-01-27 13:13] LABS: CKMB 3.5 NG/ML (0.5-3.6)
[2017-01-27] MEDS: DICYCLOMINE HCL 20 MG TAB PO SCH ×3 (13:49→22:20)
[2017-01-27] MEDS: INSULIN ASPART SUPPLEMENTAL SCALE SQ SCH ×2 (16:00→21:00)
[2017-01-27] MEDS: AZTREONAM INJ 1,000 MG in SODIUM CHLORIDE 0.9% INJ 100 ML IV SCH (18:13)
[2017-01-27] MEDS ORDERED: PEG (High)/E-LYTE SOLN 4000 ML BTL PO ONE (18:15)
--- NOTE | 2017-01-27 18:54 | MB ---
cc: VIKY REYES M.D. DATE OF CONSULTATION 01/27/17 [address] Laurent. REASON FOR REFERRAL Anemia, heme-positive stool, diarrhea. HISTORY OF PRESENT ILLNESS Thank you for the consultation. A 66-year-old lady who is known to have irritable bowel syndrome according to her for many years. She started about five days ago complaining of general fatigue, weakness and nausea. She came to the emergency room. She was told that she had gastroenteritis. She was discharged there. She came back with more diarrhea and had general malaise, abdominal pain 6/10 for several days' duration with nausea and vomiting, heme-positive stool by the rectal exam by the emergency room. The patient had a colonoscopy 2012. She was told that she had irritable bowel syndrome at that time. She denied any other problems. She started feeling a little bit better. PAST MEDICAL HISTORY 1. Arthritis, 2. Diabetes, 3. COPD, 4. Reflux symptom 5. Glaucoma, 6. 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 9. Claustrophobic and anxiety, 10. Hypothyroidism. 11. Left knee repair. 12. Tonsillectomy. REVIEW OF SYSTEMS All 12-point negative except HPI except obesity. MEDICATIONS Reviewed in the chart. ALLERGIES PENICILLIN MORPHINE FAMILY HISTORY Negative for colon cancer or heart disease. SOCIAL HISTORY Negative for tobacco, drug or alcohol. PHYSICAL EXAMINATION GENERAL: Alert, oriented in no acute distress. VITAL SIGNS: Stable. HEENT: Pupils are round, reactive to light. NECK: Supple. CHEST: Clear to auscultation and percussion. CARDIAC: Regular rate and rhythm. No murmur or gallop. ABDOMEN: Soft, nondistended. Positive bowel sounds. No hepatosplenomegaly. The patient is morbidly obese. EXTREMITIES: No edema, clubbing or cyanosis. NEUROLOGIC: Neurologically intact at this time. No limitation of range of motion or reduction in muscular strength. PSYCHIATRIC: Psychologically appropriate. LABORATORY DATA White count 25.5, hemoglobin 11.7, platelet 317, INR 1.1. Chemistry - normal liver function tests including AST of 17, ALT of 15, alk phos 82, lipase 135, albumin 3.6, total bilirubin 3.2, BUN 67, creatinine 2.3. IMAGING STUDIES CT scan showed mild changes in the pancreas, possibly indicating pancreatitis. Non-obstructing right renal calculi, small hiatal hernia. No sign of colitis. ASSESSMENT/PLAN A 66-year-old lady with a questionable history of irritable bowel syndrome. She denies history of inflammatory bowel disease. She had diarrhea. She has diarrhea. She has anemia. The anemia could be related to chronic kidney disease, but with the heme-positive stool I recommend obtaining stool for C diff ova and parasite and obtaining colon EGD. I discussed with the patient the procedures and complication. The patient agreeable to have this done. This will be done tomorrow. I informed Dr. Moreno. He will be performing the procedure. MD TAMMY Obrien/ /6:07 PM /6:46 PM
[2017-01-27] MEDS: DORZOLAMIDE/TIMOLOL OPTH SOLN 10 ML BTL LEFT EYE SCH (22:20)
[2017-01-27] MEDS: LACTOBACILLUS ACIDOPHILUS TAB PO SCH (22:20)
[2017-01-27] MEDS: BRIMONIDINE TARTRATE 0.2% OPHT SOLN 5 ML BTL EACH EYE SCH (22:20)
[2017-01-27] MEDS: VERAPAMIL HCL 240 MG SUSTAINED RELEASE TAB PO SCH (22:20)
[2017-01-27 23:34] LABS: C. DIFF EPI 027 PRESUMPTIVE NEGATIVE (NEGATIVE); C. DIFF TOXIN PCR NEGATIVE (NEGATIVE)
[2017-01-28] VITALS (7 sets, daily range): BP systolic 109–190; BP diastolic 70–81; PULSE 72–97; RESP 15–20; TEMP 96.9–98.3; O2SAT 96–100
[2017-01-28] MEDS: LEVOTHYROXINE SODIUM 112 MCG TAB PO SCH (05:49)
[2017-01-28] MEDS: AZTREONAM INJ 1,000 MG in SODIUM CHLORIDE 0.9% INJ 100 ML IV SCH ×2 (05:49→17:22)
[2017-01-28] MEDS: LEVOTHYROXINE SODIUM 25 MCG TAB PO SCH (05:49)
[2017-01-28] MEDS: INSULIN ASPART SUPPLEMENTAL SCALE SQ SCH ×4 (05:55→20:30)
[2017-01-28] MEDS: PANTOPRAZOLE INJ 80 MG in SODIUM CHLORIDE 0.9% INJ 100 ML IV SCH (06:00)
[2017-01-28 06:36] LABS: AUTOMATED NEUTROPHIL # 5.9 TH/MM3 (1.8-7.7); BASOPHIL # 0.1 TH/MM3 (0-0.2); BASOPHIL % 0.6 % (0.0-2.0); EOSINOPHIL # 0.1 TH/MM3 (0-0.4); HEMATOCRIT 28.2 % (35.0-46.0); LYMPH % 22.5 % (9.0-44.0); MEAN CELL VOLUME 75.9 FL (80.0-100.0); MEAN CORPUSCULAR HEMOGLOBIN 23.9 PG (27.0-34.0); MEAN CORPUSCULAR HGB CONC 31.4 % (32.0-36.0); MONO % 7.7 % (0.0-8.0); NEUT % 68.2 % (16.0-70.0); PLATELET COUNT 258 TH/MM3 (150-450); RED BLOOD COUNT 3.72 MIL/MM3 (4.00-5.30); RED CELL DISTRIBUTION WIDTH 17.6 % (11.6-17.2); WHITE BLOOD COUNT 8.8 TH/MM3 (4.0-11.0)
[2017-01-28 06:47] LABS: BICARBONATE 24.7 MEQ/L (21.0-32.0); POTASSIUM 3.8 MEQ/L (3.5-5.1)
[2017-01-28 06:48] LABS: HEMO FLAGS AUTO DIFF
[2017-01-28 07:32] LABS: SCAN/DIFF AUTO DIFF CONFIRMED
[2017-01-28] MEDS ORDERED: NON-FORMULARY DRUG (Levothyroxine (Synthroid) 137 MCG) PO SCH (09:00)
[2017-01-28] MEDS: SODIUM CHLORIDE 0.9% FLUSH 5 ML FLUSH FLUSH SCH ×2 (09:00→21:00)
[2017-01-28] MEDS: DORZOLAMIDE/TIMOLOL OPTH SOLN 10 ML BTL LEFT EYE SCH ×2 (09:10→21:33)
[2017-01-28] MEDS: BRIMONIDINE TARTRATE 0.2% OPHT SOLN 5 ML BTL EACH EYE SCH ×2 (09:11→21:33)
[2017-01-28] MEDS: SODIUM CHLOR 0.9% 1000 ML INJ 1,000 ML IV SCH ×3 (09:14→22:40)
--- NOTE | 2017-01-28 10:51 | GIPROC ---
[facility] [address] [place] [address], [id number] EGD PROCEDURE REPORT EXAM DATE: 01/28/2017 PATIENT NAME: Franci Jordan MR #: [id number] BIRTHDATE: 1950 ATTENDING: Jones Moreno MD ORDER #: [id number] SHEET SORTER: Karla Davila RN STATUS: inpatient INDICATIONS: The patient is a 66 yr old female here for an EGD due to anemia and occult blood positive PROCEDURE PERFORMED: EGD w/ biopsy MEDICATIONS: None and Per Anesthesia. TOPICAL ANESTHETIC: CONSENT: The patient understands the risks and benefits of the procedure and understands that these risks include, but are not limited to: sedation, allergic reaction, infection, perforation and/or bleeding. Alternative means of evaluation and treatment include, among others: physical exam, x-rays, and/or surgical intervention. The patient elects to proceed with this endoscopic procedure. medical equipment was checked for proper function. Hand hygiene and appropriate measures for infection prevention was taken. After the risks, benefits and alternatives of the procedure were thoroughly explained, Informed consent was verified, confirmed and timeout was successfully executed by the treatment team. The patient was anesthetized with topical anesthesia and the endoscope was introduced through the mouth and advanced to the second portion of the duodenum. Retroflexed views revealed no abnormalities The gastroscope was then slowly withdrawn and removed. ESOPHAGUS: There was LA Class A esophagitis noted. A medium sized hiatal hernia was noted. NIX_THIS STOMACH: A large non-bleeding non-bleeding, round, deep and clean-based ulcer with surrounding edema and heaped up edges was found in the gastric antrum. Biopsies were taken at edge of the ulcer. NIX_THIS NIX_THIS NIX_THIS NIX_THIS NIX_THIS NIX_THIS NIX_THIS NIX_THIS NIX_THIS NIX_THIS The endoscopy was otherwise normal ADVERSE EVENTS: There were no complications. IMPRESSIONS: 1. There was LA Class A esophagitis noted 2. Medium sized hiatal hernia 3. Normal endoscopy otherwise 4. Large non-bleeding ulcer was found in the gastric antrum; biopsies were taken 5. Retroflexed views revealed no abnormalities RECOMMENDATIONS: 1. Await biopsy results. Biopsy results will not be ready for 7-10 days. If you don't hear from us in two weeks, call our office for biopsy results. 2. Continue PPI 3. Avoid NSAIDS PATIENT CONDITION: stable DISPOSITION: Inpatient REPEAT EXAM: Return 2 months EGD Jones Moreno MD eSigned: Jones Moreno MD 01/28/2017 10:51 AM cc: PATIENT NAME: Franci Jordan MR#: [id number]
--- NOTE | 2017-01-28 11:04 | GIPROC ---
[facility] [address] [place] [address], [id number] COLONOSCOPY PROCEDURE REPORT EXAM DATE: 01/28/2017 PATIENT NAME: Franci Jordan MR #: [id number] BIRTHDATE: 1950 ENDOSCOPIST: Jones Moreno MD ORDER #: [id number] FLOOR CASHIER: Karla Davila RN STATUS: inpatient INDICATIONS: The patient is a 66 yr old female here for a colonoscopy due to anemia, non-specific and heme-positive stool PROCEDURE PERFORMED: Colonoscopy, diagnostic MEDICATIONS: None and Per Anesthesia. PREP QUALITY: excellent ESTIMATED BLOOD LOSS: None CONSENT: The patient understands the risks and benefits of the procedure and understands that these risks include, but are not limited to: sedation, allergic reaction, infection, perforation and/or bleeding. Alternative means of evaluation and treatment include, among others: physical exam, x-rays, and/or surgical intervention. The patient elects to proceed with this endoscopic procedure. medical equipment was checked for proper function. Hand hygiene and appropriate measures for infection prevention was taken. After the risks, benefits and alternatives of the procedure were thoroughly explained, Informed consent was verified, confirmed and timeout was successfully executed by the treatment team. A digital exam revealed no abnormalities of the rectum The endoscope was introduced through the anus and advanced to the cecum, which was identified by both the appendix and ileocecal valve. The instrument was then slowly withdrawn as the colon was fully examined. COLON FINDINGS: Mild diverticulosis was noted in the descending colon and sigmoid colon. The colon mucosa was otherwise normal. Retroflexed views revealed internal hemorrhoids and Retroflexed views revealed medium internal hemorrhoids The scope was then completely withdrawn from the patient and the procedure terminated. PROCEDURE WITHDRAWAL TIME:6.7minutes ADVERSE EVENTS: There were no complications. IMPRESSIONS: 1. Mild diverticulosis was noted in the descending colon and sigmoid colon 2. The colon mucosa was otherwise normal 3. Retroflexed views revealed internal hemorrhoids 4. Retroflexed views revealed medium internal hemorrhoids 5. Revealed no abnormalities of the rectum RECOMMENDATIONS: 1. High fiber diet 2. Follow-up: GI Clinic PRN RECALL: Return 10 years Colonoscopy Jones Moreno MD eSigned: Jones Moreno MD 01/28/2017 11:04 AM cc: [id number]
[2017-01-28] MEDS: DICYCLOMINE HCL 20 MG TAB PO SCH ×4 (12:08→21:32)
[2017-01-28] MEDS: LACTOBACILLUS ACIDOPHILUS TAB PO SCH ×2 (12:08→21:31)
[2017-01-28] MEDS: PRAVASTATIN SOD 40 MG TAB PO SCH (12:08)
--- NOTE | 2017-01-28 12:16 | HHI.PR ---
Subjective Remarks Follow-up sepsis/GI bleed/UTI 01/28/17-patient seen and examined, she status post EGD/colonoscopy and no acute event overnight Objective Vitals Vital Signs Date Time Temp Pulse Resp B/P Pulse Ox O2 Delivery O2 Flow Rate FiO2 01/28/17 10:46 98.1 78 16 139/51 100 01/28/17 09:19 97.1 89 18 128/70 96 01/28/17 08:45 99 21 01/28/17 00:00 97.7 72 18 134/75 99 01/27/17 20:20 98 21 01/27/17 20:00 97.0 80 18 185/81 98 143/71 01/27/17 13:50 89 16 124/60 100 Room Air I/O 01/27/17 01/27/17 01/27/17 01/28/17 01/28/17 01/28/17 07:00 15:00 23:00 07:00 15:00 23:00 Intake Total 1140 ml 883 ml 971 ml Balance 1140 ml 883 ml 971 ml Intake Oral 240 ml 240 ml IV Total 900 ml 643 ml 971 ml # Voids 1 5 3 # Bowel Movements 0 5 5 Result Diagram: 01/28/17 0526 01/28/17 0526 Imaging Last Impressions Chest X-Ray 01/27/17 0000 Signed Impressions: Service Date/Time: Friday, January 27, 2017 05:34 - CONCLUSION: No acute cardiopulmonary disease identified. . Lew Norwood MD Abdomen/Pelvis CT 01/26/17 0000 Signed Impressions: Service Date/Time: Friday, January 27, 2017 01:25 - CONCLUSION: 1. Mild indistinctness of the pancreatic body indicating possible acute pancreatitis. 2. Nonobstructing punctate right renal calculus. 3. Small hiatal hernia. 4. Colonic diverticula but no evidence of acute diverticulitis. 5. Prominent lumbar spine facet arthrosis. Lew Norwood MD ADDENDUM: 9 mm nodular density in the left lung base as mentioned in the findings. Recommend three-month followup chest CT without contrast. Lew Norwood MD Objective Remarks GENERAL: NAD SKIN: Warm and dry. HEAD: Normocephalic. EYES: No scleral icterus. No injection or drainage. NECK: Supple, trachea midline. No JVD or lymphadenopathy. CARDIOVASCULAR: Regular rate and rhythm without murmurs, gallops, or rubs. RESPIRATORY: Breath sounds equal bilaterally. No accessory muscle use. GASTROINTESTINAL: Abdomen soft, non-tender, nondistended. MUSCULOSKELETAL: No cyanosis, or edema. BACK: Nontender without obvious deformity. No CVA tenderness. A/P Problem List: (1) Sepsis ICD Code: A41.9 Status: Acute (2) UTI (urinary tract infection) ICD Code: N39.0 Status: Acute (3) GI bleed ICD Code: K92.2 Status: Acute (4) Acute kidney injury ICD Code: N17.9 Status: Acute (5) Elevated troponin I level ICD Code: R74.8 Status: Acute (6) Hypertension ICD Code: I10 Status: Chronic (7) Hypothyroid ICD Code: E03.9 Status: Chronic (8) Diabetes mellitus type II, controlled ICD Code: E11.9 Status: Chronic Assessment and Plan 66 years female with Sepsis :Meets sepsis criteria; Heart rate over 90, WBC > 42730, < 4000 or > 10% bands; source UTI. s/p Aztreonam, Flagyl and Vancomycin IV; Continue with Aztreonam. UTI: Continue with Aztreonam and follow urine culture. GI bleed : Status post EGD/colonoscopy 01/28/17. Finding of nonbleeding ulcer. Protonix drip discontinued a currently on by mouth Protonix 40 mg twice a day. Appreciate input from GI and continue to monitor H&H. IBS: Abdomen CT /pelvics noted and reviewed by me with finding of possible acute pancreatitis however lipase within normal limit. C. difficile PCR negative and stool culture negative as well. Continue Bentyl Acute renal Failure: prerenal , 2/2 dehydration vs Dehydration; Continue with IVF hydration and monitor Bun/Cr Elevated troponin I: likely 2/2 ARF vs sepsis (UTI); continue to monitor. As patient without any complaint of chest pain hold on starting heparin and performing nuclear stress test. DM2: hold oral hypoglycemic agent; Medium ISS with FSBG monitoring History Glaucoma: She outpatient medications Hypertension: Continue verapamil Hypothyroidism: Continue Synthroid DVT prophylaxis: Bilateral SCDs, chemical anti-prophylaxis is contraindicated Discharge Planning Likely discharge 01/29/17 with [facility] Problem Qualifiers (1) GI bleed: Qualified Code: K92.2 - Gastrointestinal hemorrhage, unspecified gastrointestinal hemorrhage type Pontey,Faizan MD Jan 28, 2017 12:16
[2017-01-28] MEDS ORDERED: PROPOFOL 200 MG/20 ML AMP IV ONE (16:10)
[2017-01-28] MEDS: hydrALAZINE HCL 25 MG TAB PO PRN (18:28)
--- NOTE | 2017-01-28 20:26 | EKG ---
Date Performed: 01/27/2017 Time Performed: 12:19:00 PTAGE: 66 years EKG: Sinus rhythm Left bundle branch block Abnormal ECG PREVIOUS TRACING : 01/27/2017 05.59 Compared to prior tracing no significant change DOCTOR: Esme Burger Interpretating Date/Time 01/28/2017 20:24:45
--- NOTE | 2017-01-28 20:34 | EKG ---
Date Performed: 01/27/2017 Time Performed: 05:59:30 PTAGE: 66 years EKG: Sinus tachycardia Possible left atrial abnormality Left bundle branch block Abnormal ECG PREVIOUS TRACING : 01/27/2017 00.48 Compared to prior tracing no significant change DOCTOR: Esme Burger Interpretating Date/Time 01/28/2017 20:34:41
--- NOTE | 2017-01-28 20:35 | EKG ---
Date Performed: 01/27/2017 Time Performed: 00:48:16 PTAGE: 66 years EKG: Sinus rhythm Left bundle branch block Abnormal ECG PREVIOUS TRACING : 12/19/2013 08.26 DOCTOR: Esme Burger Interpretating Date/Time 01/28/2017 20:35:36
[2017-01-28] MEDS: VERAPAMIL HCL 240 MG SUSTAINED RELEASE TAB PO SCH (21:31)
[2017-01-28] MEDS: PANTOPRAZOLE SOD 40 MG DELAYED RELEASE TAB PO SCH (21:31)
[2017-01-29] VITALS: BP 127/72; PULSE 79; RESP 20; TEMP 97.3; O2SAT 99
[2017-01-29] MEDS: AZTREONAM INJ 1,000 MG in SODIUM CHLORIDE 0.9% INJ 100 ML IV SCH (04:33)
[2017-01-29] MEDS: SODIUM CHLOR 0.9% 1000 ML INJ 1,000 ML IV SCH ×2 (04:47→13:55)
[2017-01-29] MEDS: LEVOTHYROXINE SODIUM 112 MCG TAB PO SCH (05:34)
[2017-01-29] MEDS: LEVOTHYROXINE SODIUM 25 MCG TAB PO SCH (05:34)
[2017-01-29] MEDS: INSULIN ASPART SUPPLEMENTAL SCALE SQ SCH ×2 (05:36→11:00)
[2017-01-29 06:40] LABS: AUTOMATED NEUTROPHIL # 5.3 TH/MM3 (1.8-7.7); BASOPHIL % 0.4 % (0.0-2.0); EOSINOPHIL # 0.2 TH/MM3 (0-0.4); EOSINOPHIL % 2.8 % (0.0-4.0); HEMATOCRIT 26.3 % (35.0-46.0); LYMPH % 26.8 % (9.0-44.0); LYMPHOCYTE # 2.2 TH/MM3 (1.0-4.8); MEAN CELL VOLUME 76.4 FL (80.0-100.0); MEAN CORPUSCULAR HEMOGLOBIN 24.6 PG (27.0-34.0); MEAN CORPUSCULAR HGB CONC 32.2 % (32.0-36.0); MONO % 8.6 % (0.0-8.0); NEUT % 61.4 % (16.0-70.0); PLATELET COUNT 239 TH/MM3 (150-450); RED BLOOD COUNT 3.45 MIL/MM3 (4.00-5.30); RED CELL DISTRIBUTION WIDTH 18.3 % (11.6-17.2); WHITE BLOOD COUNT 8.4 TH/MM3 (4.0-11.0)
[2017-01-29 06:45] LABS: HEMO FLAGS AUTO DIFF
[2017-01-29 06:56] LABS: POTASSIUM 4.5 MEQ/L (3.5-5.1)
[2017-01-29 07:19] LABS: SCAN/DIFF AUTO DIFF CONFIRMED
[2017-01-29 08:00] VITALS: BP 182/80; PULSE 80; RESP 19; TEMP 98; O2SAT 98; O2SAT 99
[2017-01-29] MEDS: SODIUM CHLORIDE 0.9% FLUSH 5 ML FLUSH FLUSH SCH (08:18)
[2017-01-29] MEDS: DICYCLOMINE HCL 20 MG TAB PO SCH ×2 (09:12→13:12)
[2017-01-29] MEDS: DORZOLAMIDE/TIMOLOL OPTH SOLN 10 ML BTL LEFT EYE SCH (09:12)
[2017-01-29] MEDS: LACTOBACILLUS ACIDOPHILUS TAB PO SCH (09:12)
[2017-01-29] MEDS: BRIMONIDINE TARTRATE 0.2% OPHT SOLN 5 ML BTL EACH EYE SCH (09:12)
[2017-01-29] MEDS: PRAVASTATIN SOD 40 MG TAB PO SCH (09:12)
[2017-01-29] MEDS: PANTOPRAZOLE SOD 40 MG DELAYED RELEASE TAB PO SCH (09:12)
[2017-01-29] MEDS: hydrALAZINE HCL 25 MG TAB PO PRN (09:15)
[2017-01-29 12:00] VITALS: BP 142/97; PULSE 78; RESP 17; TEMP 98; O2SAT 100
[2017-01-29] MEDS ORDERED: MACR100C2 PO (12:24)
[2017-01-29] MEDS ORDERED: LACT PO (12:24)
[2017-01-29] MEDS ORDERED: PANT40TA3 PO (12:24)
--- NOTE | 2017-01-29 12:31 | HHI.DS ---
Discharge Summary Admission Date Jan 27, 2017 at 05:28 Discharge Date: Jan 29, 2017 Admitting Diagnosis sepsis; uti; KARLI; elevated troponinI (1) Sepsis ICD Code: A41.9 (2) UTI (urinary tract infection) ICD Code: N39.0 (3) GI bleed ICD Code: K92.2 (4) Acute kidney injury ICD Code: N17.9 (5) Elevated troponin I level ICD Code: R74.8 (6) Hypertension ICD Code: I10 (7) Hypothyroid ICD Code: E03.9 (8) Diabetes mellitus type II, controlled ICD Code: E11.9 Procedures EGD colonoscopy Brief History - From Admission 66 year-old -[place]ian female with a history of IBD, glaucoma and recent GI bleed discharged from [facility] on 01/25/17 return for evaluation of generalized malaise, abdominal pain related 6/10 in intensity of several day duration without any associated emesis, diarrhea. She had Hemoccult-positive for which GI was consulted. Her last colonoscopy 2012. Ago patient denies any urinary frequency and dysuria she was found to have abnormal UA. Patient denies any recent febrile episode however was found to have elevated white blood cell count. CBC/BMP: 01/29/17 0612 01/29/17 0612 Significant Findings Laboratory Tests Test 01/27/17 01/27/17 01/27/17 01/27/17 00:20 04:11 06:00 12:35 White Blood Count 25.5 TH/MM3 (4.0-11.0) Mean Corpuscular Volume 75.9 FL (80.0-100.0) Mean Corpuscular Hemoglobin 24.4 PG (27.0-34.0) Red Cell Distribution Width 17.8 % (11.6-17.2) Neutrophils % (Manual) 73 % (16-70) Neutrophils # (Manual) 18.6 TH/MM3 (1.8-7.7) Platelet Morphology Comment CLUMPED (NORMAL) Activated Partial 22.2 SEC Thromboplast Time (24.3-30.1) Blood Urea Nitrogen 67 MG/DL (7-18) Creatinine 2.30 MG/DL (0.50-1.00) Estimat Glomerular Filtration 26 ML/MIN (>89) Rate Random Glucose 113 MG/DL (74-106) Total Creatine Kinase 350 U/L 293 U/L 232 U/L (26-192) (26-192) (26-192) Troponin I 0.19 NG/ML 0.27 NG/ML 0.21 NG/ML (0.02-0.05) (0.02-0.05) (0.02-0.05) Urine Turbidity MOD (CLEAR) Urine Protein 30 mg/dL (NEG-TRACE) Urine Ketones TRACE mg/dL (NEG) Urine Occult Blood TRACE (NEG) Urine Leukocyte Esterase SMALL (NEG) Urine WBC 15-19 /hpf (0-5) Urine Squamous Epithelial 6-8 /hpf (0-5) Cells Urine Bacteria FEW /hpf (NONE) Urine Hyaline Casts 25-49 /lpf (RARE) Urine Mucus MOD /lpf (OCC) Creatine Kinase MB 3.7 NG/ML (0.5-3.6) Test 01/28/17 01/29/17 05:26 06:12 Red Blood Count 3.72 MIL/MM3 3.45 MIL/MM3 (4.00-5.30) (4.00-5.30) Hemoglobin 8.9 GM/DL 8.5 GM/DL (11.6-15.3) (11.6-15.3) Hematocrit 28.2 % 26.3 % (35.0-46.0) (35.0-46.0) Mean Corpuscular Volume 75.9 FL 76.4 FL (80.0-100.0) (80.0-100.0) Mean Corpuscular Hemoglobin 23.9 PG 24.6 PG (27.0-34.0) (27.0-34.0) Mean Corpuscular Hemoglobin 31.4 % Concent (32.0-36.0) Red Cell Distribution Width 17.6 % 18.3 % (11.6-17.2) (11.6-17.2) Chloride Level 109 MEQ/L 110 MEQ/L (98-107) (98-107) Blood Urea Nitrogen 37 MG/DL (7-18) Creatinine 1.20 MG/DL (0.50-1.00) Estimat Glomerular Filtration 54 ML/MIN (>89) 71 ML/MIN (>89) Rate Calcium Level 8.3 MG/DL 8.3 MG/DL (8.5-10.1) (8.5-10.1) Monocytes (%) (Auto) 8.6 % (0.0-8.0) PE at Discharge GENERAL: This is a well-nourished, morbidly obese lady well-developed patient, in no apparent distress. SKIN: No rashes, warm and dry HEAD: Atraumatic. Normocephalic. EYES: Pupils equal round and reactive. Extraocular motions intact. No scleral icterus. ENT: Nose without bleeding, or drainage, Airway patent. NECK: Trachea midline. Supple CARDIOVASCULAR: Regular rate and rhythm without murmurs, gallops, or rubs. RESPIRATORY: Fair air entry bilaterally. No wheezes, rales, or rhonchi. GASTROINTESTINAL: Abdomen soft, non-tender, nondistended. Positive bowel sounds MUSCULOSKELETAL: Extremities without clubbing, cyanosis, or edema. Pedal pulses appreciated NEUROLOGICAL: Awake and alert. Moves all extremity. Normal speech.no focal neurological deficit Hospital Course 66 years female with Sepsis Meets sepsis criteria; Heart rate over 90, WBC > 74261, < 4000 or > 10% bands; source UTI. s/p Aztreonam, Flagyl and Vancomycin IV; Continue with Aztreonam. UTI Continue status post Aztreonam urine culture normal gretchen, will switch to Macrobid GI bleed Status post EGD/colonoscopy 01/28/17. Finding of nonbleeding ulcer. Protonix drip discontinued a currently on by mouth Protonix 40 mg twice a day. Appreciate input from GI and continue to monitor H&H. IBS Abdomen CT /pelvics noted and reviewed by me with finding of possible acute pancreatitis however lipase within normal limit. C. difficile PCR negative and stool culture negative as well. Continue Bentyl Acute renal Failure prerenal improved , 2/2 dehydration vs Dehydration; Continue with IVF hydration and monitor Bun/Cr Elevated troponin no chest, nonspecific likely 2/2 ARF vs sepsis (UTI); continue to monitor trending down DM2 hold oral hypoglycemic agent; Medium ISS with FSBG monitoring History Glaucoma: She outpatient medications Hypertension: Continue verapamil Hypothyroidism: Continue Synthroid Pt Condition on Discharge: Good Discharge Disposition: Discharge Home Discharge Time: <= 30 minutes Discharge Instructions DIET: Follow Instructions for: Heart Healthy Diet, Diabetic Diet, High Fiber Diet Activities you can perform: Weight Bearing as Rick Follow up Referrals: Gastroenterology - 2 Weeks with Jones Moreno MD New Medications: Nitrofurantoin Monohydrate Macrocrystals (Macrobid) 100 Mg Cap 100 MG PO BID Infection #10 Ref 0 CAP Lactobacillus Acidophilus (Acidophilus/l-Sporogenes) 1 Tab Tab 1 TAB PO Q12HR gi #30 TAB Pantoprazole (Pantoprazole) 40 Mg Tab 40 MG PO Q12HR gi #60 TAB Continued Medications: Aspirin (Aspirin) 81 Mg Tabdr 81 MG PO DAILY TAB Brimonidine Opth Drops (Brimonidine Opth Drops) 0.2% Soln 1 DROP EACH EYE BID Intraocular pressure #1 Ref 0 BOTTLE Clotrimazole-Betamethasone Topical (Clotrimazole-Betamethasone Topical) 1-0.05% Cream 1 APPLIC TOPICAL BID PRN RASH #15 Ref 0 GM Dorzolamide-Timolol Opth Drops (Dorzolamide-Timolol Opth Drops) 22.3-6.8 Mg/Ml Soln 1 DROP LEFT EYE BID Glaucoma Ref 0 BOTTLE Levothyroxine (Synthroid) 137 Mcg Tab 137 MCG PO DAILY Thyroid #30 Ref 0 TAB Metformin (Metformin) 500 Mg Tab 500 MG PO DAILY With a meal Blood Sugar Management #30 Ref 0 TAB Promethazine (Phenergan) 25 Mg Tab 25 MG PO Q6H PRN Nausea/Vomiting #10 Ref 0 TAB Simvastatin (Simvastatin) 20 Mg Tab 20 MG PO DAILY Cholesterol Management #30 Ref 0 TAB Verapamil ER 24 HR (Verapamil ER 24 HR) 240 Mg Tab 240 MG PO HS #30 Ref 0 TAB Dhara Baez MD Jan 29, 2017 12:31
== END 2017-01-29 19:32 | disposition home or self-care (01) | DRG 872 ==
LOC: PHED 20:45 → PHEDA 01-27 05:28 → PH3B 01-27 15:21
PROVIDERS: ADMIT Hospitalist; ATTEND Hospitalist
PROC: 0DB68ZX Excision of Stomach, Via Natural or Artificial Opening Endoscopic, Diagnostic (ICD-10-PCS; principal; 2017-01-28 10:00)
PROC: 0DJD8ZZ Inspection of Lower Intestinal Tract, Via Natural or Artificial Opening Endoscopic (ICD-10-PCS; 2017-01-28 10:00)
DX: A41.9 Sepsis, unspecified organism (principal); N17.9 Acute kidney failure, unspecified; Z68.41 Body mass index [BMI] 40.0-44.9, adult; K92.2 Gastrointestinal hemorrhage, unspecified; E66.01 Morbid (severe) obesity due to excess calories; N39.0 Urinary tract infection, site not specified; K25.9 Gastric ulcer, unspecified as acute or chronic, without hemorrhage or perforation; R74.8 Abnormal levels of other serum enzymes; I10 Essential (primary) hypertension; E03.9 Hypothyroidism, unspecified; E11.9 Type 2 diabetes mellitus without complications; Z79.84 Long term (current) use of oral hypoglycemic drugs; K58.9 Irritable bowel syndrome, unspecified; E86.0 Dehydration; K20.9 Esophagitis, unspecified; Z79.82 Long term (current) use of aspirin; K44.9 Diaphragmatic hernia without obstruction or gangrene; K57.30 Diverticulosis of large intestine without perforation or abscess without bleeding; K64.8 Other hemorrhoids; H40.9 Unspecified glaucoma; M19.90 Unspecified osteoarthritis, unspecified site; D64.9 Anemia, unspecified; K52.9 Noninfective gastroenteritis and colitis, unspecified
CPT/HCPCS: 71010; 74176; 76937; 80048; 80076; 81001; 82550; 82552; 82948; 83605; 83690; 83735; 84484; 85007; 85025; 85027; 85610; 85730; 86850; 86900; 86901; 87040; 87086; 87328; 87329; 87493; 88305; 88312; 93005; 96361; 96365; 96367; 96374; 96375; C9113; J0780; J1200; J2405; J7030

== ENCOUNTER → 2017-04-17 | Outpatient (CLI) | payer MEDICARE ==
[~2017-04-17] MED LIST changes: +AMLO5 PO; +CARA1TAB6 PO; +HYDR25TA5 PO; +LACT PO; +MACR100C2 PO; +PANT40TA3 PO
[2017-04-17 08:50] LABS: ANION GAP 5 MEQ/L (5-15); BICARBONATE 29.2 MEQ/L (21.0-32.0); BLOOD UREA NITROGEN 15 MG/DL (7-18); CHLORIDE 103 MEQ/L (98-107); GLOMERULAR FILTRATION RATE 66 ML/MIN (>89); GLUCOSE,FASTING 111 MG/DL (74-99); POTASSIUM 3.7 MEQ/L (3.5-5.1); SODIUM (NA) 137 MEQ/L (136-145)
[2017-04-17 09:01] LABS: HDL CHOLESTEROL 73.2 MG/DL (40.0-60.0); LDL CHOLESTEROL 116 MG/DL (0-99)
[2017-04-17 16:29] LABS: HEMOGLOBIN A1a 1.2 %; HEMOGLOBIN A1b 1.6 %; HEMOGLOBIN Ao 84.9 %; HEMOGLOBIN LA1C 1.9 %; HEMOGLOBIN P3 3.8 %
== END ==
LOC: CLAB 07:29
PROVIDERS: ATTEND Family Medicine
DX: E11.9 Type 2 diabetes mellitus without complications (principal); E87.6 Hypokalemia; E78.5 Hyperlipidemia, unspecified; I10 Essential (primary) hypertension; E03.9 Hypothyroidism, unspecified; R79.89 Other specified abnormal findings of blood chemistry; E66.9 Obesity, unspecified; Z68.41 Body mass index [BMI] 40.0-44.9, adult
CPT/HCPCS: 36415; 80048; 80061; 83036; 84443

== ENCOUNTER → 2017-05-07 | Outpatient (CLI) | payer MEDICARE ==
[~2017-05-07] MED LIST changes: -AMLO5 PO; -CARA1TAB6 PO
[2017-05-07 11:07] LABS: RHEUMATOID FACTOR TRIGGER LESS THAN 10.0 IU/ML (0.0-14.9)
== END ==
LOC: CLAB 07:28
PROVIDERS: ATTEND Family Medicine
DX: R94.6 Abnormal results of thyroid function studies (principal); M19.90 Unspecified osteoarthritis, unspecified site; M25.561 Pain in right knee; M25.50 Pain in unspecified joint; E03.9 Hypothyroidism, unspecified
CPT/HCPCS: 36415; 84443; 86038; 86430

== ENCOUNTER 2017-05-15 17:35 | Inpatient (IN) | payer MEDICARE ==
[~2017-05-15] VITALS: Ht 167.6 cm; Wt 114.3 kg
[2017-05-15] VITALS (7 sets, daily range): BP systolic 124–175; BP diastolic 75–95; PULSE 79–111; RESP 16–18; TEMP 98.2–98.7; O2SAT 95–99
[~2017-05-15 17:35] MED LIST changes: -HYDR25TA5 PO
[2017-05-15] MEDS ORDERED: SODIUM CHLOR 0.9% 1000 ML INJ 1,000 ML IV SCH (17:51)
[2017-05-15] MEDS ORDERED: HYDR25TA5 PO (17:59)
[2017-05-15] MEDS ORDERED: SODIUM CHLORIDE 0.9% FLUSH 10 ML FLUSH IV FLUSH PRN ×2 (18:00→20:00)
[2017-05-15] MEDS ORDERED: ONDANSETRON HCL 4 MG/2 ML VIAL IVP ONE (18:00)
[2017-05-15 18:23] LABS: AUTOMATED NEUTROPHIL # 14.8 TH/MM3 (1.8-7.7); BASOPHIL # 0.1 TH/MM3 (0-0.2); BASOPHIL % 0.7 % (0.0-2.0); EOSINOPHIL % 0.2 % (0.0-4.0); HEMATOCRIT 34.3 % (35.0-46.0); LYMPHOCYTE # 2.2 TH/MM3 (1.0-4.8); MEAN CELL VOLUME 72.1 FL (80.0-100.0); MEAN CORPUSCULAR HEMOGLOBIN 23.5 PG (27.0-34.0); MEAN CORPUSCULAR HGB CONC 32.6 % (32.0-36.0); MONO % 6.4 % (0.0-8.0); NEUT % 80.7 % (16.0-70.0); PLATELET COUNT 419 TH/MM3 (150-450); RED BLOOD COUNT 4.76 MIL/MM3 (4.00-5.30); RED CELL DISTRIBUTION WIDTH 16.3 % (11.6-17.2); WHITE BLOOD COUNT 18.3 TH/MM3 (4.0-11.0)
[2017-05-15 18:28] LABS: HEMO FLAGS AUTO DIFF
[2017-05-15 18:31] LABS: CHLORIDE 96 MEQ/L (98-107); POTASSIUM 4.2 MEQ/L (3.5-5.1); SODIUM (NA) 135 MEQ/L (136-145)
[2017-05-15 18:35] LABS: ANION GAP 14 MEQ/L (5-15); BICARBONATE 25.3 MEQ/L (21.0-32.0); BLOOD UREA NITROGEN 63 MG/DL (7-18)
[2017-05-15 18:38] LABS: ALT (GPT) 17 U/L (10-53); AST (GOT) 24 U/L (15-37); GLOMERULAR FILTRATION RATE 27 ML/MIN (>89)
[2017-05-15 18:39] LABS: TOTAL BILIRUBIN ADULT 0.3 MG/DL (0.2-1.0)
[2017-05-15 18:40] LABS: ALKALINE PHOSPHATASE 100 U/L (45-117); CREATINE KINASE 342 U/L (26-192)
--- NOTE | 2017-05-15 18:48 | PD ---
HPI . Abdominal pain Chief Complaint: GI Complaint Time Seen by Provider: 17:43 Travel History International Travel<30 days: No Contact w/Intl Traveler<30days: No Traveled to known affect area: No History of Present Illness HPI Patient presents with some left abdominal pain associated with nausea and vomiting for the last 3 days. She reports one episode of emesis today. No diarrhea. No melena or hematochezia. No urinary tract symptoms such as dysuria , frequency or urgency. No exacerbating or relieving factors. Pain is rated at 8/10. PFSH Past Medical History Hx Anticoagulant Therapy: Yes Arthritis: Yes Anxiety: Yes Cancer: No Cardiovascular Problems: Yes (HTN) COPD: Yes Diabetes: Yes Patient Takes Glucophage: Yes Diminished Hearing: No Endocrine: Yes Gastrointestinal Disorders: Yes (GERD, IRRATABLE BOWEL) Glaucoma: Yes Genitourinary: Yes Hepatitis: No Hiatal Hernia: No Hypertension: Yes Immune Disorder: No Medical other: No Musculoskeletal: Yes (ARTHRITIS) Neurologic: Yes (DEXTER'S PALSY, NEUROPATHY FINGER TIPS) Psychiatric: Yes (SEVERE CLAUSTRAPHOBIA/ ANXIETY) Reproductive: No Respiratory: Yes (copd) Renal Failure: Yes (new onset) Thyroid Disease: Yes Influenza Vaccination: No ?: Not Menopausal: Yes Past Surgical History AICD: No Joint Replacement: No Pacemaker: No Tonsillectomy: Yes Other Surgery: Yes Social History Alcohol Use: No Tobacco Use: No Substance Use: No Allergies-Medications (Allergen,Severity, Reaction): Coded Allergies: Penicillin (Verified Allergy, Severe, NAUSEA OR HIVES/ CAN'T REMEMBER, ) Reported Meds & Prescriptions Reported Meds & Active Scripts Active Pantoprazole (Pantoprazole Sodium) 40 Mg Tab 40 Mg PO Q12HR Reported Hydrochlorothiazide 25 Mg Tab 25 Mg PO DAILY Dorzolamide-Timolol Opth Drops 22.3-6.8 Mg/Ml Soln 1 Drop LEFT EYE BID Brimonidine Opth Drops (Brimonidine Tartrate) 0.2% Soln 1 Drop EACH EYE BID Synthroid (Levothyroxine Sodium) 137 Mcg Tab 137 Mcg PO DAILY Simvastatin 20 Mg Tab 20 Mg PO DAILY Dicyclomine (Dicyclomine HCl) 20 Mg Tab 20 Mg PO QID Metformin (Metformin HCl) 500 Mg Tab 500 Mg PO DAILY With a meal Review of Systems Except as stated in HPI: all other systems reviewed are Neg General / Constitutional: No: Fever, Chills Cardiovascular: No: Chest Pain or Discomfort Respiratory: Positive: Shortness of Breath Gastrointestinal: Positive: Nausea, Vomiting, Abdominal Pain, No: Diarrhea, Hematochezia, Changes in Bowel Habits Genitourinary: No: Urgency, Frequency, Dysuria Physical Exam Narrative Vital Signs Date Time Temp Pulse Resp B/P Pulse Ox O2 Delivery O2 Flow Rate FiO2 05/15/17 18:25 18 96 Room Air 05/15/17 17:39 98.7 111 18 124/81 99 GENERAL: The patient does not appear to be in any distress. SKIN: Warm and dry. HEAD: Atraumatic. Normocephalic. EYES: Pupils equal and round. ENT: No nasal bleeding or discharge. Mucous membranes pink and moist. NECK: Trachea midline. Neck is supple. CARDIOVASCULAR: Regular rate and rhythm. Heart sounds are normal. RESPIRATORY: No accessory muscle use. Lungs sound clear with full air movement throughout. She is not tachypneic. She is not hypoxic. GASTROINTESTINAL: Abdomen soft. Mild left sided tenderness with no guarding or rebound. Nondistended. MUSCULOSKELETAL: No obvious deformities. No edema. NEUROLOGICAL: Awake and alert. No obvious cranial nerve deficits. Motor grossly within normal limits. Normal speech. PSYCHIATRIC: Appropriate mood and affect; insight and judgment normal. Data Data Last Documented VS Vital Signs Date Time Temp Pulse Resp B/P Pulse Ox O2 Delivery O2 Flow Rate FiO2 05/15/17 18:25 18 96 Room Air 05/15/17 17:39 98.7 111 124/81 Orders Complete Blood Count With Diff (05/15/17 17:51) Comprehensive Metabolic Panel (05/15/17 17:51) Lipase (05/15/17 17:51) Urinalysis - C+S If Indicated (05/15/17 17:51) Iv Access Insert/Monitor (05/15/17 17:51) Ecg Monitoring (05/15/17 17:51) Oximetry (05/15/17 17:51) Ondansetron Inj (Zofran Inj) (05/15/17 18:00) Sodium Chlor 0.9% 1000 Ml Inj (Ns 1000 M (05/15/17 17:51) Sodium Chloride 0.9% Flush (Ns Flush) (05/15/17 18:00) Electrocardiogram (05/15/17 17:51) B-Type Natriuretic Peptide (05/15/17 17:57) Ckmb (Isoenzyme) Profile (05/15/17 17:51) Troponin I (05/15/17 17:51) CKMB (05/15/17 18:15) CKMB% (05/15/17 18:15) Ct Abd/Pel W/O Iv Contrast (05/15/17 18:48) Lactic Acid Sepsis Protocol (05/15/17 18:48) Sodium Chlor 0.9% 1000 Ml Inj (Ns 1000 M (05/15/17 19:00) Piperacil-Tazo 4.5 Gm Premix (Zosyn 4.5 (05/15/17 19:00) Urine Culture (05/15/17 18:55) Prochlorperazine Inj (Compazine Inj) (05/15/17 19:45) Diphenhydramine Inj (Benadryl Inj) (05/15/17 19:45) Morphine Inj (Morphine Inj) (05/15/17 19:45) Labs Laboratory Tests Test 05/15/17 05/15/17 18:15 18:55 White Blood Count 18.3 TH/MM3 Red Blood Count 4.76 MIL/MM3 Hemoglobin 11.2 GM/DL Hematocrit 34.3 % Mean Corpuscular Volume 72.1 FL Mean Corpuscular Hemoglobin 23.5 PG Mean Corpuscular Hemoglobin 32.6 % Concent Red Cell Distribution Width 16.3 % Platelet Count 419 TH/MM3 Mean Platelet Volume 8.1 FL Neutrophils (%) (Auto) 80.7 % Lymphocytes (%) (Auto) 12.0 % Monocytes (%) (Auto) 6.4 % Eosinophils (%) (Auto) 0.2 % Basophils (%) (Auto) 0.7 % Neutrophils # (Auto) 14.8 TH/MM3 Lymphocytes # (Auto) 2.2 TH/MM3 Monocytes # (Auto) 1.2 TH/MM3 Eosinophils # (Auto) 0.0 TH/MM3 Basophils # (Auto) 0.1 TH/MM3 CBC Comment AUTO DIFF Differential Comment AUTO DIFF CONFIRMED Platelet Estimate NORMAL Platelet Morphology Comment NORMAL Sodium Level 135 MEQ/L Potassium Level 4.2 MEQ/L Chloride Level 96 MEQ/L Carbon Dioxide Level 25.3 MEQ/L Anion Gap 14 MEQ/L Blood Urea Nitrogen 63 MG/DL Creatinine 2.20 MG/DL Estimat Glomerular Filtration 27 ML/MIN Rate Random Glucose 126 MG/DL Calcium Level 9.4 MG/DL Total Bilirubin 0.3 MG/DL Aspartate Amino Transf 24 U/L (AST/SGOT) Alanine Aminotransferase 17 U/L (ALT/SGPT) Alkaline Phosphatase 100 U/L Total Creatine Kinase 342 U/L Creatine Kinase MB 1.8 NG/ML Creatine Kinase MB % 0.5 % Troponin I 0.04 NG/ML B-Type Natriuretic Peptide 19 PG/ML Total Protein 7.7 GM/DL Albumin 3.4 GM/DL Lipase 108 U/L Urine Collection Type VOIDED Urine Color YELLOW Urine Turbidity CLOUDY Urine pH 5.5 Urine Specific [facility] 1.019 Urine Protein 30 mg/dL Urine Glucose (UA) NEG mg/dL Urine Ketones NEG mg/dL Urine Occult Blood TRACE Urine Nitrite NEG Urine Bilirubin NEG Urine Leukocyte Esterase MOD Urine WBC 15-19 /hpf Urine Squamous Epithelial >8 /hpf Cells Urine Bacteria FEW /hpf Urine Hyaline Casts 50-100 /lpf Urine Fine Granular Casts 0-2 /lpf Microscopic Urinalysis Comment CULTURE INDICATED MDM Medical Decision Making Medical Screen Exam Complete: Yes Emergency Medical Condition: Yes Medical Record Reviewed: Yes (patient was admitted in January with sepsis, acute kidney injury, GI bleed. Her hemoglobin went as low as 8.5. She does not per any blood. She had a subsequent EGD that showed an ulcer which was not actively bleeding.) Interpretation(s) EKG shows a sinus rhythm with ventricular rate of 103. No acute ischemic change. Differential Diagnosis Differential diagnosis of abdominal pain includes but is not limited to gastritis, pancreatitis, hepatitis, gastroenteritis, gallbladder disease, constipation, urinary retention, UTI, peptic ulcer disease, diverticulitis or appendicitis Narrative Course Patient presents with the chief complaint of left-sided abdominal pain associated with nausea and vomiting. She reports that she's been sick for 3 days. She looks well. Her abdominal exam is pretty benign. I have not ordered a CT scan at this point. See what her labs look like. She is allergic to morphine. I have treated her nausea with Zofran. She already reports that she feels much better just with some fluids and Zofran. CBC & BMP Diagram 05/15/17 18:15 This patient has leukocytosis and ARF. Her most recent BUN/creatinine on was 15/1.01 with a GFR of 66. LFTs and lipase are normal. BNP is 19. CKMB 1.8, trop 0.04 UA>>mod LE, 15-19 WBCs, few bact I have added a lactic acid sepsis protocol, a second liter of fluid and a noncontrasted CT. She was also given Zosyn. This is a patient of the [facility]. She has been admitted here in the past to the services of [facility]. They will be consult for admission. Critical Care Narrative Aggregate critical care time was 30 minutes. Time to perform other separately billable procedures was not included in the critical care time. My time did not include minutes spent treating any other patients simultaneously or on activities that did not directly contribute to the patient's treatment. The services I provided to this patient were to treat and/or prevent clinically significant deterioration due to sepsis, acute renal failure I provided critical care services requiring my management, as noted below: Chart data review, documentation time, medication orders and management, vital sign assessments/reviewing monitor data, ordering and reviewing lab tests, ordering and interpreting/reviewing x-rays and diagnostic studies, care of the patient and discussion of the patient with the admitting physicians Sepsis Criteria SIRS Criteria (2 or more): Heart rate over 90, WBC > 24489, < 4000 or > 10% bands Sepsis Criteria (SIRS+source): Infect source susp/known Severe Sepsis (+one): Acute Oliguria/Renal Failure Criteria Outcome: Meets SIRS criteria, Meets sepsis criteria, Meets severe sepsis criteria Physician Communication Physician Communication Dr. Funez will admit Diagnosis Primary Impression: Sepsis Qualified Code: A41.9 - Sepsis, due to unspecified organism Additional Impressions: Acute kidney injury UTI (urinary tract infection) Qualified Code: N30.00 - Acute cystitis without hematuria Admitting Information Admitting Physician Requests: Admit Condition: Stable Radha Beckman MD May 15, 2017 18:48
[2017-05-15 18:53] LABS: CKMB 1.8 NG/ML (0.5-3.6)
[2017-05-15 18:59] LABS: BLOOD, URINE TRACE (NEG); GLUCOSE,URINE NEG (NEG); KETONE, URINE NEG (NEG); NITRITE,URINE NEG (NEG); PH, URINE 5.5 (5.0-8.5)
[2017-05-15] MEDS ORDERED: PIPERACIL-TAZO 4.5 GM PREMIX 100 ML IV ONE (19:00)
[2017-05-15] MEDS ORDERED: SODIUM CHLOR 0.9% 1000 ML INJ 1,000 ML IV ONE (19:00)
[2017-05-15 19:08] LABS: METHOD OF COLLECTION VOIDED; URINE COLOR YELLOW (YELLW/STRAW)
[2017-05-15 19:17] LABS: HYALINE CAST, URINE 50-100 /lpf (RARE); SQUAMOUS EPITHELIAL CELL URINE >8 /hpf (0-5); WBC, URINE 15-19 /hpf (0-5)
[2017-05-15 19:18] LABS: BACTERIA, URINE FEW /hpf; COMMENT (UR) CULTURE INDICATED; CULTURE IF INDICATED CULTURE INDICATED
[2017-05-15 19:20] LABS: PLATELET ESTIMATE SMEAR NORMAL (NORMAL); PLATELET MORPHOLOGY NORMAL (NORMAL); SCAN/DIFF AUTO DIFF CONFIRMED
--- NOTE | 2017-05-15 19:30 | RADRPT ---
EXAM DATE/TIME: 05/15/2017 18:55 [facility] COMPARISON: CT ABDOMEN & PELVIS W/O CONTRAST, January 27, 2017, 1:25. INDICATIONS : Left abdominal pain. Vomiting. ORAL CONTRAST: No oral contrast ingested. RADIATION DOSE: 22.26 CTDIvol (mGy) MEDICAL HISTORY : Renal failure, acute. Irritable bowel syndrome. Gastroesophageal reflux disease.Hypertension. COPD. D iabetes. SURGICAL HISTORY : None. ENCOUNTER: Initial ACUITY: 2 days PAIN SCALE: 8/10 LOCATION: Left abdomen. TECHNIQUE: Volumetric scanning of the abdomen and pelvis was performed. Using automated exposure control and ad justment of the mA and/or kV according to patient size, radiation dose was kept as low as reasonably achievable to obtain optimal diagnostic quality images. DICOM format image data is available electro nically for review and comparison. FINDINGS: LOWER LUNGS: Stable 9 mm noncalcified nodule in the left lung base. LIVER: Homogeneous density without lesion. There is no dilation of the biliary tree. No calcified gallston es. The gallbladder appears unremarkable. SPLEEN: Normal size without lesion. PANCREAS: Within normal limits. KIDNEYS: Normal in size and shape. There is no definite mass or hydronephrosis. There is a tiny less than 1 m m right renal calculus. ADRENAL GLANDS: The right adrenal gland is unremarkable. There is a stable low density left adrenal adenoma. VASCULAR: There is no aortic aneurysm. BOWEL/MESENTERY: There is a small hiatal hernia again noted. The stomach, small bowel, and colon demonstrate no acute abnormality. There is no free intraperitoneal air or fluid. ABDOMINAL WALL: Within normal limits. RETROPERITONEUM: There is no lymphadenopathy. BLADDER: No wall thickening or mass. REPRODUCTIVE: Within normal limits. INGUINAL: There is no lymphadenopathy or hernia. MUSCULOSKELETAL: Within normal limits for patient age. CONCLUSION: 1. Stable 9 mm noncalcified nodule in the left lung base. This represents a three-month interval sinc e the prior study. A 6 month follow[address] noncontrast chest CT is recommended. 2. Stable left adrenal adenoma. 3. Tiny less than 1 mm nonobstructing right renal calculus. 4. Small retrocardiac hiatal hernia. 5. The gallbladder remains unremarkable in appearance. 6. Nonobstructive bowel gas pattern. No oral contrast was given limiting the sensitivity. Roberto Duke MD on May 15, 2017 at 19:24 Board Certified Radiologist. This report was verified electronically.
[2017-05-15] MEDS ORDERED: diphenhydrAMINE HCL 50 MG/ML VIAL IV PUSH ONE (19:45)
[2017-05-15] MEDS ORDERED: MORPHINE SULFATE 8 MG/ML INJ IV PUSH ONE (19:45)
[2017-05-15] MEDS ORDERED: PROCHLORPERAZINE INJ 10 MG/2 ML VIAL IV PUSH ONE (19:45)
[2017-05-15] MEDS ORDERED: MORPHINE SULFATE 4 MG/ML INJ IV ONE (19:45)
[2017-05-15] MEDS ORDERED: NALOXONE HCL 0.4 MG/ML AMP IV PRN (20:00)
[2017-05-15] MEDS ORDERED: MORPHINE SULFATE 4 MG/ML INJ IV PRN (20:00)
[2017-05-15] MEDS ORDERED: ACETAMINOPHEN/HYDROcodone 325 MG/5 MG TAB PO PRN (20:00)
[2017-05-15] MEDS ORDERED: LACTULOSE SYRUP 20 GM/30 ML CUP PO PRN (20:00)
[2017-05-15] MEDS ORDERED: BISACODYL 10 MG SUPP RECTAL PRN (20:00)
[2017-05-15] MEDS: CIPROFLOXACIN 400 MG PREMIX 200 ML IV SCH (20:37)
[2017-05-15] MEDS: SODIUM CHLOR 0.45% 1000 ML INJ 1,000 ML IV SCH (20:38)
[2017-05-15] MEDS: DOCUSATE SODIUM 50 MG/SENNA 8.6 MG TAB PO SCH (20:45)
[2017-05-15] MEDS ORDERED: MAGNESIUM HYDROXIDE SUSP 30 ML CUP PO PRN (21:00)
[2017-05-15] MEDS: metroNIDAZOLE 500 MG INJ 100 ML IV SCH (21:00)
[2017-05-15] MEDS ORDERED: SENNOSIDES 8.6 MG TAB PO PRN (21:00)
[2017-05-15] MEDS ORDERED: ACETAMINOPHEN 325 MG TAB PO PRN (21:00)
[2017-05-15] MEDS: SODIUM CHLORIDE 0.9% FLUSH 10 ML FLUSH IV FLUSH SCH (21:00)
[2017-05-15] MEDS: HEPARIN SODIUM - SQ 10,000 UNITS/ML VIAL SQ SCH (22:00)
[2017-05-16] MEDS ORDERED: ONDANSETRON HCL 4 MG/2 ML VIAL IVP PRN
[2017-05-16 00:49] VITALS: BP 149/89; PULSE 80; RESP 20; TEMP 98; O2SAT 97
[2017-05-16] MEDS: SODIUM CHLOR 0.45% 1000 ML INJ 1,000 ML IV SCH ×2 (02:00→22:27)
[2017-05-16] MEDS: CIPROFLOXACIN 400 MG PREMIX 200 ML IV SCH ×2 (02:00→09:01)
[2017-05-16] MEDS: ACETAMINOPHEN/HYDROcodone 325 MG/7.5 MG TAB PO PRN ×2 (03:50→17:30)
[2017-05-16] MEDS: metroNIDAZOLE 500 MG INJ 100 ML IV SCH ×3 (03:51→20:35)
[2017-05-16 04:35] VITALS: BP 153/75; PULSE 96; RESP 16; TEMP 98.1; O2SAT 98
[2017-05-16] MEDS: HEPARIN SODIUM - SQ 10,000 UNITS/ML VIAL SQ SCH ×3 (05:29→20:34)
--- NOTE | 2017-05-16 07:04 | EKG ---
Date Performed: 05/15/2017 Time Performed: 18:04:35 PTAGE: 66 years EKG: SINUS TACHYCARDIA POSSIBLE LEFT ATRIAL ENLARGEMENT LEFT BUNDLE BRANCH BLOCK ABNORMAL ECG CO MPARED TO PRIOR ELECTROCARDIOGRAM, Rate has increased. PREVIOUS TRACING : 01/27/2017 12.19 DOCTOR: Kyle Shah Interpretating Date/Time 05/16/2017 07:03:04
[2017-05-16 07:27] LABS: AUTOMATED NEUTROPHIL # 11.4 TH/MM3 (1.8-7.7); BASOPHIL # 0.1 TH/MM3 (0-0.2); BASOPHIL % 0.4 % (0.0-2.0); EOSINOPHIL # 0.1 TH/MM3 (0-0.4); EOSINOPHIL % 0.5 % (0.0-4.0); HEMATOCRIT 30.4 % (35.0-46.0); LYMPH % 14.5 % (9.0-44.0); LYMPHOCYTE # 2.2 TH/MM3 (1.0-4.8); MEAN CELL VOLUME 72.9 FL (80.0-100.0); MEAN CORPUSCULAR HEMOGLOBIN 23.2 PG (27.0-34.0); MEAN CORPUSCULAR HGB CONC 31.9 % (32.0-36.0); MONO % 7.1 % (0.0-8.0); NEUT % 77.5 % (16.0-70.0); PLATELET COUNT 340 TH/MM3 (150-450); RED BLOOD COUNT 4.17 MIL/MM3 (4.00-5.30); RED CELL DISTRIBUTION WIDTH 16.1 % (11.6-17.2); WHITE BLOOD COUNT 14.9 TH/MM3 (4.0-11.0)
[2017-05-16 07:33] LABS: HEMO FLAGS AUTO DIFF
[2017-05-16 07:55] LABS: PLATELET ESTIMATE SMEAR NORMAL (NORMAL); PLATELET MORPHOLOGY NORMAL (NORMAL); SCAN/DIFF AUTO DIFF CONFIRMED
[2017-05-16 08:00] VITALS: BP 150/76; PULSE 94; RESP 16; TEMP 97.5; O2SAT 95
[2017-05-16 08:02] LABS: ALKALINE PHOSPHATASE 87 U/L (45-117); ALT (GPT) 15 U/L (10-53); ANION GAP 12 MEQ/L (5-15); AST (GOT) 12 U/L (15-37); BICARBONATE 26.6 MEQ/L (21.0-32.0); BLOOD UREA NITROGEN 52 MG/DL (7-18); CHLORIDE 99 MEQ/L (98-107); GLOMERULAR FILTRATION RATE 39 ML/MIN (>89); SODIUM (NA) 138 MEQ/L (136-145); TOTAL BILIRUBIN ADULT 0.3 MG/DL (0.2-1.0)
[2017-05-16 08:03] LABS: POTASSIUM 3.2 MEQ/L (3.5-5.1)
[2017-05-16] MEDS: SODIUM CHLORIDE 0.9% FLUSH 10 ML FLUSH IV FLUSH SCH ×2 (09:00→20:43)
[2017-05-16] MEDS: DOCUSATE SODIUM 50 MG/SENNA 8.6 MG TAB PO SCH ×2 (09:00→20:34)
--- NOTE | 2017-05-16 09:57 | HHI.HP ---
HPI Service [facility] Primary Care Physician Physician [facility] Admission Diagnosis sepsis, ARF, UTI Diagnoses: Chief Complaint: Nausea, vomiting, abdominal pain. Travel History International Travel<30 Days: No Contact w/Intl Traveler <30 Da: No Traveled to Known Affected Are: No History of Present Illness Ms. Joradn is a pleasant 66 year old female with a history of hypertension, diabetes who presented to the ED on 05/15/2017 due to nausea, vomiting as well as abdominal pain that started approximately 3 days ago. Her last bowel movement was on 05/12/2017. In the last 3 days, she has been having nausea, vomiting and anorexia. She reports some sweating and chills but no fever. She also complains of left sided upper abdominal pain and some shortness of breath. Denies any changes in her bladder habits. Review of Systems Except as stated in HPI: all other systems reviewed are Neg Past Family Social History Past Medical History Hypertension Diabetes mellitus Hypothyroidism GERD Past Surgical History Tonsillectomy Reported Medications Pantoprazole (Pantoprazole Sodium) 40 Mg Tab 40 Mg PO Q12HR Reported Hydrochlorothiazide 25 Mg Tab 25 Mg PO DAILY Dorzolamide-Timolol Opth Drops 22.3-6.8 Mg/Ml Soln 1 Drop LEFT EYE BID Brimonidine Opth Drops (Brimonidine Tartrate) 0.2% Soln 1 Drop EACH EYE BID Synthroid (Levothyroxine Sodium) 137 Mcg Tab 137 Mcg PO DAILY Simvastatin 20 Mg Tab 20 Mg PO DAILY Dicyclomine (Dicyclomine HCl) 20 Mg Tab 20 Mg PO QID Metformin (Metformin HCl) 500 Mg Tab 500 Mg PO DAILY With a meal Allergies: Coded Allergies: Penicillin (Verified Allergy, Severe, NAUSEA OR HIVES/ CAN'T REMEMBER, ) Family History No family history of Alzheimer's or Parkinson's Social History Denies using alcohol, tobacco or illicit drugs. Physical Exam Vital Signs Vital Signs Date Time Temp Pulse Resp B/P Pulse Ox O2 Delivery O2 Flow Rate FiO2 05/16/17 08:00 97.5 94 16 150/76 95 05/16/17 04:35 98.1 96 16 153/75 98 05/16/17 00:49 98.0 80 20 149/89 97 05/15/17 21:30 104 05/15/17 21:24 175/85 96 05/15/17 21:20 98.2 89 18 167/93 96 05/15/17 20:30 99 16 173/75 95 05/15/17 19:50 16 05/15/17 19:00 79 18 153/95 96 Room Air 05/15/17 18:25 18 96 Room Air 05/15/17 17:39 98.7 111 18 124/81 99 Physical Exam GENERAL: This is a well-nourished, well-developed patient, in no apparent distress. SKIN: No rashes, ecchymoses or lesions. Warm and dry. HEAD: Atraumatic. Normocephalic. No temporal or scalp tenderness. EYES: Pupils equal round and reactive. No injection or drainage. ENT: Nose without bleeding, purulent drainage or septal hematoma. Airway patent. NECK: Trachea midline. No lymphadenopathy. Supple, nontender, no meningeal signs. CARDIOVASCULAR: Regular rate and rhythm without murmurs, gallops, or rubs. No JVD. RESPIRATORY: Clear to auscultation. Breath sounds equal bilaterally. No wheezes , rales, or rhonchi. GASTROINTESTINAL: Abdomen soft, nondistended. No guarding. Mildly tender to palpation on the left upper quadrant. MUSCULOSKELETAL: Extremities without clubbing, cyanosis, or edema. NEUROLOGICAL: Awake and alert. Cranial nerves II through XII intact. No focal neurological deficits. Normal speech. Laboratory Laboratory Tests Test 05/15/17 05/15/17 05/15/17 05/16/17 18:15 18:55 19:37 06:50 White Blood Count 18.3 14.9 Red Blood Count 4.76 4.17 Hemoglobin 11.2 9.7 Hematocrit 34.3 30.4 Mean Corpuscular Volume 72.1 72.9 Mean Corpuscular Hemoglobin 23.5 23.2 Mean Corpuscular Hemoglobin 32.6 31.9 Concent Red Cell Distribution Width 16.3 16.1 Platelet Count 419 340 Mean Platelet Volume 8.1 8.2 Neutrophils (%) (Auto) 80.7 77.5 Lymphocytes (%) (Auto) 12.0 14.5 Monocytes (%) (Auto) 6.4 7.1 Eosinophils (%) (Auto) 0.2 0.5 Basophils (%) (Auto) 0.7 0.4 Neutrophils # (Auto) 14.8 11.4 Lymphocytes # (Auto) 2.2 2.2 Monocytes # (Auto) 1.2 1.1 Eosinophils # (Auto) 0.0 0.1 Basophils # (Auto) 0.1 0.1 CBC Comment AUTO DIFF AUTO DIFF Differential Comment AUTO DIFF AUTO DIFF CONFIRMED CONFIRMED Platelet Estimate NORMAL NORMAL Platelet Morphology Comment NORMAL NORMAL Sodium Level 135 138 Potassium Level 4.2 3.2 Chloride Level 96 99 Carbon Dioxide Level 25.3 26.6 Anion Gap 14 12 Blood Urea Nitrogen 63 52 Creatinine 2.20 1.60 Estimat Glomerular Filtration 27 39 Rate Random Glucose 126 127 Calcium Level 9.4 9.0 Total Bilirubin 0.3 0.3 Aspartate Amino Transf 24 12 (AST/SGOT) Alanine Aminotransferase 17 15 (ALT/SGPT) Alkaline Phosphatase 100 87 Total Creatine Kinase 342 Creatine Kinase MB 1.8 Creatine Kinase MB % 0.5 Troponin I 0.04 B-Type Natriuretic Peptide 19 Total Protein 7.7 6.7 Albumin 3.4 3.2 Lipase 108 Urine Collection Type VOIDED Urine Color YELLOW Urine Turbidity CLOUDY Urine pH 5.5 Urine Specific [place] 1.019 Urine Protein 30 Urine Glucose (UA) NEG Urine Ketones NEG Urine Occult Blood TRACE Urine Nitrite NEG Urine Bilirubin NEG Urine Leukocyte Esterase MOD Urine WBC 15-19 Urine Squamous Epithelial >8 Cells Urine Bacteria FEW Urine Hyaline Casts 50-100 Urine Fine Granular Casts 0-2 Microscopic Urinalysis Comment CULTURE INDICATED Lactic Acid Level 1.6 Date/Time Procedure Status Source Growth 05/15/17 20:05 Aerobic Blood Culture Received Blood Peripheral Pending 05/15/17 20:05 Anaerobic Blood Culture Received Blood Peripheral Pending 05/15/17 18:55 Urine Culture Received Urine Random Urine Pending Result Diagram: 05/16/17 0650 05/16/17 0650 Imaging Last Impressions Abdomen/Pelvis CT 05/15/17 [id number] Signed Impressions: Service Date/Time: Monday, May 15, 2017 18:55 - CONCLUSION: 1. Stable 9 mm noncalcified nodule in the left lung base. This represents a three-month interval since the prior study. A 6 month followup noncontrast chest CT is recommended. 2. Stable left adrenal adenoma. 3. Tiny less than 1 mm nonobstructing right renal calculus. 4. Small retrocardiac hiatal hernia. 5. The gallbladder remains unremarkable in appearance. 6. Nonobstructive bowel gas pattern. No oral contrast was given limiting the sensitivity. Roberto Duke MD Assessment and Plan Problem List: (1) Gastroenteritis ICD Code: K52.9 Status: Acute (2) Acute kidney injury ICD Code: N17.9 Status: Acute (3) Hypertension ICD Code: I10 Status: Chronic (4) Diabetes mellitus type II, controlled ICD Code: E11.9 Status: Chronic (5) Hypothyroidism ICD Code: E03.9 Status: Acute Assessment and Plan Ms. Jordan is a 66 year old female with a history of IBS, HTN, DM who presented to the ED on 05/15/2017 due to nausea, vomiting, abdominal pain that started 3 days ago. - Abdominal pain, acute - Possible gastroenteritis - Possible ileus - Patient has a history of IBS and takes dicyclomine. - CT abdomen pelvis reviewed by me. No acute findings that would explain patient's clinical symptoms. - [address] chest will be ordered based on a stable 9mm non- calcified nodule in the left lung base. - Continue [place] for pain management as well as Morphine PRN. - Patient has not had any vomiting episodes today. Will advance her diet. - May consider small bowel follow through if symptoms persist. Also, will consider GI consult if symptoms persist. - Acute kidney injury - Creatinine 2.20 --> 1.60. We will continue to monitor. - Likely due to nausea, vomiting, volume loss. - Continue NS @75cc/hour. - CBC, BMP in the AM. - Hypertension - Continue Amlodipine 5mg, HCTZ 25mg - both Qday. - Diabetes mellitus - Patient is on metformin at home. We will continue Sliding scale insulin for now. Blood glucose in the 120s range. - Hypothyroidism - Continue Levothyroxine 137 mcg Qday. Full code. Heparin SQ. Physician Certification 2 Midnight Certification Type: Admission for Inpatient Services Order for Inpatient Services The services are ordered in accordance with Medicare regulations or non- Medicare payer requirements, as applicable. In the case of services not specified as inpatient-only, they are appropriately provided as inpatient services in accordance with the 2-midnight benchmark. Estimated LOS (days): 2 days is the estimated time the patient will need to remain in the hospital, assuming treatment plan goals are met and no additional complications. Post-Hospital Plan: Home Tammy Mclain DO May 16, 2017 9:57 am
[2017-05-16] MEDS ORDERED: amLODIPine BESYLATE 5 MG TAB PO ONE (10:00)
[2017-05-16] MEDS: HYDROCHLOROTHIAZIDE 25 MG TAB PO SCH (10:08)
[2017-05-16] MEDS: LEVOTHYROXINE SODIUM 25 MCG TAB PO SCH (10:09)
[2017-05-16] MEDS: LEVOTHYROXINE SODIUM 112 MCG TAB PO SCH (10:09)
[2017-05-16 12:00] VITALS: BP 151/82; PULSE 86; RESP 16; TEMP 98.1; O2SAT 98
[2017-05-16] MEDS ORDERED: DEXTROSE 50% IN WATER 50 ML VIAL(D50) IV PRN (12:15)
[2017-05-16] MEDS ORDERED: GLUCAGON 1 MG/ML VIAL OTHER PRN (12:15)
[2017-05-16] MEDS: POTASSIUM CHLORIDE 10 MEQ CONTROLLED RELEASE TAB PO SCH ×2 (13:27→21:58)
[2017-05-16] MEDS: DICYCLOMINE HCL 20 MG TAB PO SCH ×3 (13:27→20:34)
[2017-05-16 16:00] VITALS: BP 128/64; PULSE 100; RESP 16; TEMP 97.9; O2SAT 100
[2017-05-16] MEDS: INSULIN ASPART SUPPLEMENTAL SCALE SQ SCH ×2 (16:00→20:35)
[2017-05-16] MEDS: PANTOPRAZOLE SOD 40 MG DELAYED RELEASE TAB PO SCH (20:34)
[2017-05-16] MEDS: BRIMONIDINE TARTRATE 0.2% OPHT SOLN 5 ML BTL EACH EYE SCH (20:34)
[2017-05-16] MEDS: DORZOLAMIDE/TIMOLOL OPTH SOLN 10 ML BTL LEFT EYE SCH (20:34)
[2017-05-16 20:54] VITALS: BP 126/85; PULSE 108; RESP 20; TEMP 98.1; O2SAT 97
[2017-05-17] MEDS: ACETAMINOPHEN/HYDROcodone 325 MG/7.5 MG TAB PO PRN ×2 (00:10→21:24)
[2017-05-17 01:18] VITALS: BP 135/71; PULSE 87; RESP 16; TEMP 97.5; O2SAT 98
[2017-05-17] MEDS: LEVOTHYROXINE SODIUM 25 MCG TAB PO SCH (05:58)
[2017-05-17] MEDS: LEVOTHYROXINE SODIUM 112 MCG TAB PO SCH (05:58)
[2017-05-17] MEDS: metroNIDAZOLE 500 MG INJ 100 ML IV SCH ×2 (05:59→14:03)
[2017-05-17] MEDS: HEPARIN SODIUM - SQ 10,000 UNITS/ML VIAL SQ SCH (05:59)
[2017-05-17] MEDS: POTASSIUM CHLORIDE 10 MEQ CONTROLLED RELEASE TAB PO SCH ×3 (05:59→21:17)
[2017-05-17] MEDS ORDERED: LEVOTHYROXINE SODIUM 112 MCG TAB PO SCH (06:00)
[2017-05-17] MEDS ORDERED: LEVOTHYROXINE SODIUM 25 MCG TAB PO SCH (06:00)
[2017-05-17] MEDS: INSULIN ASPART SUPPLEMENTAL SCALE SQ SCH ×4 (06:04→21:00)
[2017-05-17 07:38] LABS: AUTOMATED NEUTROPHIL # 7.9 TH/MM3 (1.8-7.7); BASOPHIL # 0.1 TH/MM3 (0-0.2); BASOPHIL % 0.5 % (0.0-2.0); EOSINOPHIL # 0.1 TH/MM3 (0-0.4); EOSINOPHIL % 1.1 % (0.0-4.0); HEMATOCRIT 28.1 % (35.0-46.0); LYMPH % 17.9 % (9.0-44.0); LYMPHOCYTE # 1.9 TH/MM3 (1.0-4.8); MEAN CELL VOLUME 73.2 FL (80.0-100.0); MEAN CORPUSCULAR HEMOGLOBIN 23.2 PG (27.0-34.0); MEAN CORPUSCULAR HGB CONC 31.6 % (32.0-36.0); MONO % 7.7 % (0.0-8.0); NEUT % 72.8 % (16.0-70.0); PLATELET COUNT 335 TH/MM3 (150-450); RED BLOOD COUNT 3.84 MIL/MM3 (4.00-5.30); RED CELL DISTRIBUTION WIDTH 16.3 % (11.6-17.2); WHITE BLOOD COUNT 10.8 TH/MM3 (4.0-11.0)
[2017-05-17 07:41] LABS: HEMO FLAGS AUTO DIFF
[2017-05-17 07:51] VITALS: BP 157/87; PULSE 85; RESP 20; TEMP 97.3; O2SAT 98
[2017-05-17 07:52] LABS: POTASSIUM 3.3 MEQ/L (3.5-5.1)
[2017-05-17 08:10] LABS: BICARBONATE 28.4 MEQ/L (21.0-32.0)
[2017-05-17 08:39] LABS: SCAN/DIFF AUTO DIFF CONFIRMED
[2017-05-17] MEDS ORDERED: HYDROCHLOROTHIAZIDE 25 MG TAB PO SCH (09:00)
[2017-05-17] MEDS: SODIUM CHLORIDE 0.9% FLUSH 10 ML FLUSH IV FLUSH SCH ×2 (09:00→21:18)
[2017-05-17] MEDS: BRIMONIDINE TARTRATE 0.2% OPHT SOLN 5 ML BTL EACH EYE SCH ×2 (09:42→21:19)
[2017-05-17] MEDS: DORZOLAMIDE/TIMOLOL OPTH SOLN 10 ML BTL LEFT EYE SCH ×2 (09:42→21:19)
[2017-05-17] MEDS: amLODIPine BESYLATE 5 MG TAB PO SCH (09:43)
[2017-05-17] MEDS: HYDROCHLOROTHIAZIDE 25 MG TAB PO SCH (09:43)
[2017-05-17] MEDS: DICYCLOMINE HCL 20 MG TAB PO SCH ×4 (09:43→21:18)
[2017-05-17] MEDS: PANTOPRAZOLE SOD 40 MG DELAYED RELEASE TAB PO SCH ×2 (09:43→21:18)
[2017-05-17] MEDS: PRAVASTATIN SOD 40 MG TAB PO SCH (09:43)
[2017-05-17] MEDS: DOCUSATE SODIUM 50 MG/SENNA 8.6 MG TAB PO SCH ×3 (09:44→21:17)
--- NOTE | 2017-05-17 11:05 | RADRPT ---
EXAM DATE/TIME: 05/17/2017 10:26 [facility] COMPARISON: CT ABDOMEN & PELVIS W/O CONTRAST, May 15, 2017, 18:55. INDICATIONS : Abdomen pain MEDICAL HISTORY : Chronic obstructive pulmonary disease. Gastroesophageal reflux disease. Diabetes mellitus type II. SURGICAL HISTORY : None. ENCOUNTER: Subsequent ACUITY: 4 - 6 days PAIN SCORE: 5/10 LOCATION: Bilateral abdomen FINDINGS: Supine view of the abdomen was performed. The abdominal bowel gas pattern is normal. No abnormal ma sses, calcifications, or organomegaly is seen. The osseous structures are unremarkable. CONCLUSION: No acute disease. Cristo Castle MD on May 17, 2017 at 11:03 Board Certified Radiologist. This report was verified electronically.
[2017-05-17] MEDS: SODIUM CHLOR 0.45% 1000 ML INJ 1,000 ML IV SCH (11:47)
[2017-05-17 12:00] VITALS: BP 123/60; PULSE 81; RESP 20; TEMP 98.7; O2SAT 100
[2017-05-17] MEDS ORDERED: DIATRIZOATE MEGLUM/DIATRIZOATE SOD 120 ML BTL (for RAD DIAG) PO ONE (15:15)
[2017-05-17 16:00] VITALS: BP 151/85; PULSE 82; RESP 20; TEMP 98.7; O2SAT 99
--- NOTE | 2017-05-17 17:28 | RADRPT ---
EXAM DATE/TIME: 05/17/2017 15:08 [facility] COMPARISON: CT ABDOMEN & PELVIS W/O CONTRAST, May 15, 2017, 18:55. INDICATIONS : Abdominal pain. FLUORO TIME: 0 minutes IMAGE COUNT: 12 CONTRAST: Gastrocass IMAGING TIME(S): 15 min, 30 min, 45 min, 1 hr MEDICAL HISTORY : None. SURGICAL HISTORY : None. ENCOUNTER: Subsequent ACUITY: 3 days PAIN SCORE: 10/10 LOCATION: Bilateral abdomen FINDINGS: Preliminary film demonstrates an elongated area density in the left medial lower abdomen likely relat ed to ingested pill versus a calcification . There appears to be a mass at the distal stomach. Difficult to charges an intrinsic right shunting ma ss. This is seen as a rounded compression on the distal stomach. Very little contrast is seen in the distal stomach and duodenal bulb region. The mass but the duodenum appears unremarkable. Examination of the small bowel demonstrates normal mucosal pattern involving the jejunum and ileum. There is no evidence of mass or obstruction. No intraluminal filling defects are identified. Small bowel transit time is normal at 45 minutes. Fluoroscopy of the abdomen and terminal ileum demonstrat es no abnormality. CONCLUSION: Mass of the distal stomach, direct inspection would be recommended. Ernesto Alexis MD on May 17, 2017 at 17:20 Board Certified Radiologist. This report was verified electronically.
--- NOTE | 2017-05-17 18:28 | HHI.PR ---
Subjective Remarks Follow up for abdominal pain. Patient is doing well. Her abdominal pain is better now. She underwent small bowel follow through study and subsequently she had bowel movement but her stool is dark and loose. No fever, chills. Objective Vitals Vital Signs Date Time Temp Pulse Resp B/P Pulse Ox O2 Delivery O2 Flow Rate FiO2 05/17/17 16:00 98.7 82 20 151/85 99 05/17/17 12:00 98.7 81 20 123/60 100 05/17/17 07:51 97.3 85 20 157/87 98 05/17/17 04:37 05/17/17 01:18 97.5 87 16 135/71 98 05/16/17 20:54 98.1 108 20 126/85 97 I/O 05/16/17 05/16/17 05/16/17 05/17/17 05/17/17 05/17/17 07:00 15:00 23:00 07:00 15:00 23:00 Intake Total 1800 ml 495 ml 280 ml 775 ml Balance 1800 ml 495 ml 280 ml 775 ml Intake Oral 450 ml 240 ml IV Total 1350 ml 495 ml 280 ml 535 ml # Voids 1 2 3 2 # Bowel Movements 0 1 8 Result Diagram: 05/17/17 0710 05/17/17 0710 Imaging Last Impressions Small Bowel X-Ray 05/17/17 0000 Signed Impressions: Service Date/Time: Wednesday, May 17, 2017 15:08 - CONCLUSION: Mass of the distal stomach, direct inspection would be recommended. Ernesto Alexis MD Abdomen X-Ray 05/17/17 0000 Signed Impressions: Service Date/Time: Wednesday, May 17, 2017 10:26 - CONCLUSION: No acute disease. Cristo Castle MD Abdomen/Pelvis CT 05/15/17 1848 Signed Impressions: Service Date/Time: Monday, May 15, 2017 18:55 - CONCLUSION: 1. Stable 9 mm noncalcified nodule in the left lung base. This represents a three-month interval since the prior study. A 6 month followup noncontrast chest CT is recommended. 2. Stable left adrenal adenoma. 3. Tiny less than 1 mm nonobstructing right renal calculus. 4. Small retrocardiac hiatal hernia. 5. The gallbladder remains unremarkable in appearance. 6. Nonobstructive bowel gas pattern. No oral contrast was given limiting the sensitivity. Roberto Duke MD Objective Remarks GENERAL: AOX3, NAD. SKIN: Warm and dry. HEAD: Normocephalic. EYES: No scleral icterus. No injection or drainage. NECK: Supple, trachea midline. No JVD or lymphadenopathy. CARDIOVASCULAR: Regular rate and rhythm without murmurs, gallops, or rubs. RESPIRATORY: Breath sounds equal bilaterally. No accessory muscle use. GASTROINTESTINAL: Abdomen soft, non-tender, nondistended. MUSCULOSKELETAL: No cyanosis, or edema. BACK: Nontender without obvious deformity. No CVA tenderness. Procedures None. A/P Problem List: (1) Gastroenteritis ICD Code: K52.9 Status: Acute (2) Acute kidney injury ICD Code: N17.9 Status: Acute (3) Hypertension ICD Code: I10 Status: Chronic (4) Diabetes mellitus type II, controlled ICD Code: E11.9 Status: Chronic (5) Hypothyroidism ICD Code: E03.9 Status: Acute Assessment and Plan Ms. Jordan is a 66 year old female with a history of IBS, HTN, DM who presented to the ED on 05/15/2017 due to nausea, vomiting, abdominal pain that started 3 days ago. - Abdominal pain, acute - Possible gastroenteritis - Possible ileus - Patient has a history of IBS and takes dicyclomine. - CT abdomen pelvis reviewed by me. No acute findings that would explain patient's clinical symptoms. - [address] chest will be ordered based on a stable 9mm non- calcified nodule in the left lung base. - Continue [place] for pain management as well as Morphine PRN. - Patient has not had any vomiting episodes today. Will advance her diet. - small bowel follow through reviewed by me, shows mass at the distal stomach. - GI consulted for possible EGD/Colonoscopy. Patient underwent EGD/ Colonoscopy in January 2016. - No infectious etiology is suspected. We will discontinue Cipro and Flagyl. - Probable upper GI bleed - Hemoglobin is trending down. 8.9 --> 8.5. - Will discontinue heparin DVT prophylaxis. SCDs for now. - Acute kidney injury - resolving. - Creatinine 2.20 --> 1.60 --> 1.10 We will continue to monitor. - Likely due to nausea, vomiting, volume loss. - Continue NS @75cc/hour. - Hypertension - Continue Amlodipine 5mg, HCTZ 25mg - both Qday. - Diabetes mellitus - Patient is on metformin at home. We will continue Sliding scale insulin for now. Blood glucose in the 120s range. - Hypothyroidism - Continue Levothyroxine 137 mcg Qday. Full code. SCDs. Tammy Mclain DO May 17, 2017 6:28 pm
[2017-05-17 20:48] VITALS: BP 161/108; PULSE 112; RESP 20; TEMP 98.8; O2SAT 99
[2017-05-18 00:27] VITALS: BP 133/80; PULSE 84; RESP 18; TEMP 97.3; O2SAT 98
[2017-05-18] MEDS: LEVOTHYROXINE SODIUM 112 MCG TAB PO SCH (05:18)
[2017-05-18] MEDS: LEVOTHYROXINE SODIUM 25 MCG TAB PO SCH (05:18)
[2017-05-18] MEDS: POTASSIUM CHLORIDE 10 MEQ CONTROLLED RELEASE TAB PO SCH ×3 (05:19→20:54)
[2017-05-18] MEDS: SODIUM CHLOR 0.45% 1000 ML INJ 1,000 ML IV SCH (05:22)
[2017-05-18] MEDS: INSULIN ASPART SUPPLEMENTAL SCALE SQ SCH ×4 (05:34→20:57)
[2017-05-18 08:00] VITALS: BP 162/76; PULSE 87; RESP 20; TEMP 97.7; O2SAT 97
[2017-05-18] MEDS: BRIMONIDINE TARTRATE 0.2% OPHT SOLN 5 ML BTL EACH EYE SCH ×2 (08:10→20:52)
[2017-05-18] MEDS: DORZOLAMIDE/TIMOLOL OPTH SOLN 10 ML BTL LEFT EYE SCH ×2 (08:10→20:53)
[2017-05-18] MEDS: SODIUM CHLORIDE 0.9% FLUSH 10 ML FLUSH IV FLUSH SCH ×2 (08:10→20:53)
[2017-05-18] MEDS: amLODIPine BESYLATE 5 MG TAB PO SCH (08:11)
[2017-05-18] MEDS: DICYCLOMINE HCL 20 MG TAB PO SCH ×4 (08:11→20:54)
[2017-05-18] MEDS: HYDROCHLOROTHIAZIDE 25 MG TAB PO SCH (08:11)
[2017-05-18] MEDS: PANTOPRAZOLE SOD 40 MG DELAYED RELEASE TAB PO SCH ×2 (08:11→20:54)
[2017-05-18] MEDS: PRAVASTATIN SOD 40 MG TAB PO SCH (08:12)
[2017-05-18] MEDS: DOCUSATE SODIUM 50 MG/SENNA 8.6 MG TAB PO SCH ×2 (08:13→20:57)
--- NOTE | 2017-05-18 09:27 | HHI.PR ---
Subjective Remarks Follow up for abdominal pain. Ms. Jordan is doing well today. Her abdominal pain is minimal. Had BM yesterday. No fever, chills. Objective Vitals Vital Signs Date Time Temp Pulse Resp B/P Pulse Ox O2 Delivery O2 Flow Rate FiO2 05/18/17 08:00 97.7 87 20 162/76 97 05/18/17 04:59 05/18/17 00:27 97.3 84 18 133/80 98 05/17/17 20:48 98.8 112 20 161/108 99 05/17/17 16:00 98.7 82 20 151/85 99 05/17/17 12:00 98.7 81 20 123/60 100 I/O 05/17/17 05/17/17 05/17/17 05/18/17 05/18/17 05/18/17 07:00 15:00 23:00 07:00 15:00 23:00 Intake Total 280 ml 775 ml 1380 ml Balance 280 ml 775 ml 1380 ml Intake Oral 240 ml IV Total 280 ml 535 ml 1380 ml # Voids 3 2 2 # Bowel Movements 0 1 8 Result Diagram: 05/17/17 0710 05/17/17 0710 Imaging Last Impressions Small Bowel X-Ray 05/17/17 0000 Signed Impressions: Service Date/Time: Wednesday, May 17, 2017 15:08 - CONCLUSION: Mass of the distal stomach, direct inspection would be recommended. Ernesto Alexis MD Abdomen X-Ray 05/17/17 0000 Signed Impressions: Service Date/Time: Wednesday, May 17, 2017 10:26 - CONCLUSION: No acute disease. Cristo Castle MD Abdomen/Pelvis CT 05/15/17 1848 Signed Impressions: Service Date/Time: Monday, May 15, 2017 18:55 - CONCLUSION: 1. Stable 9 mm noncalcified nodule in the left lung base. This represents a three-month interval since the prior study. A 6 month followup noncontrast chest CT is recommended. 2. Stable left adrenal adenoma. 3. Tiny less than 1 mm nonobstructing right renal calculus. 4. Small retrocardiac hiatal hernia. 5. The gallbladder remains unremarkable in appearance. 6. Nonobstructive bowel gas pattern. No oral contrast was given limiting the sensitivity. Roberto Duke MD Objective Remarks GENERAL: AOX3, NAD. SKIN: Warm and dry. HEAD: Normocephalic. EYES: No scleral icterus. No injection or drainage. NECK: Supple, trachea midline. No JVD or lymphadenopathy. CARDIOVASCULAR: Regular rate and rhythm without murmurs, gallops, or rubs. RESPIRATORY: Breath sounds equal bilaterally. No accessory muscle use. GASTROINTESTINAL: Abdomen soft, non-tender, nondistended. MUSCULOSKELETAL: No cyanosis, or edema. BACK: Nontender without obvious deformity. No CVA tenderness. Procedures None. A/P Problem List: (1) Gastroenteritis ICD Code: K52.9 Status: Acute (2) Acute kidney injury ICD Code: N17.9 Status: Acute (3) Hypertension ICD Code: I10 Status: Chronic (4) Diabetes mellitus type II, controlled ICD Code: E11.9 Status: Chronic (5) Hypothyroidism ICD Code: E03.9 Status: Acute Assessment and Plan Ms. Jordan is a 66 year old female with a history of IBS, HTN, DM who presented to the ED on 05/15/2017 due to nausea, vomiting, abdominal pain that started 3 days ago. - Abdominal pain, acute - Possible gastroenteritis - Possible ileus - Patient has a history of IBS and takes dicyclomine. - CT abdomen pelvis reviewed by me. No acute findings that would explain patient's clinical symptoms. - [address] chest will be ordered based on a stable 9mm non- calcified nodule in the left lung base. - Continue [place] for pain management as well as Morphine PRN. - small bowel follow through reviewed by me, shows mass at the distal stomach. - GI consulted - EGD planned for 05/19/2017. GI also ordered Gastric emptying study. - Patient underwent EGD/Colonoscopy in January 2016. - No infectious etiology is suspected. We discontinued Cipro and Flagyl. - Probable upper GI bleed - Hemoglobin is trending down. 8.9 --> 8.5. - SCDs for now. - Acute kidney injury - resolving. - Creatinine 2.20 --> 1.60 --> 1.10 We will continue to monitor. - Likely due to nausea, vomiting, volume loss. - Continue NS @75cc/hour. - Hypertension - Continue Amlodipine 5mg, HCTZ 25mg - both Qday. - Diabetes mellitus - Patient is on metformin at home. We will continue Sliding scale insulin for now. - Hypothyroidism - Continue Levothyroxine 137 mcg Qday. Full code. SCDs. Tammy Mclain DO May 18, 2017 9:27 am
--- NOTE | 2017-05-18 09:32 | MB ---
cc: MONA SANZ M.D., SHAHABUDDIN DO DATE OF CONSULTATION: 05/18/2017 DATE OF : 1950 REASON FOR CONSULTATION Abdominal pain, anemia, nausea and vomiting. HISTORY OF PRESENT ILLNESS Ms. Jordan is a very pleasant 66-year-old lady with multiple medical problems who came to the emergency room with complaints of nausea, vomiting and abdominal pain that started three days ago. Her last bowel movement was 05/12/2017. She was given a laxative and since then she had diarrhea. The patient was recently admitted for similar reasons. She had an extensive work-up at that time including upper endoscopy and colonoscopy. The endoscopy showed a gastric ulcer. Biopsies were negative. During this admission she underwent a CT of the abdomen and pelvis which basically showed a large hiatal hernia with stable findings otherwise, nonobstructive gas pattern. A small bowel follow-through showed a possible mass in the distal stomach. She feels a little bit better today with no further episodes of nausea and vomiting. She is tolerating her diet pretty well. She has chronic anemia. In looking at her old records for hemoglobin has been actually stable. She also has some underlying renal insufficiency which may account for some degree of the anemia. PAST MEDICAL HISTORY 1. Diabetes. 2. Obesity. 3. High blood pressure. 4. Reflux. 5. Anemia. PAST SURGICAL HISTORY Tonsillectomy. MEDICATIONS 1. Protonix. 2. Hydrochlorothiazide. 3. Eye drops. 4. Synthroid. 5. Simvastatin. 6. Dicyclomine. 7. Metformin. ALLERGIES PENICILLIN. FAMILY HISTORY No family history of colon cancer or any other GI pathology. SOCIAL HISTORY She denies any smoking, drinking or drug use. PHYSICAL EXAMINATION GENERAL: On clinical exam she is seen comfortably in bed in no acute distress. VITAL SIGNS: Her vitals are stable. Temperature 97.3, heart rate 84, respiration 18, blood pressure 133/80. HEENT: [place]ID[place]. NECK: No JVD. No lymphadenopathy. CHEST: Clear to auscultation and percussion. CARDIOVASCULAR: S1, S2. No murmur. ABDOMEN: Soft. Obese. Bowel sounds are present. COLOR ARTIST: Awake, alert, oriented x3. No focal signs identified. LABORATORY BUN on admission was 52, currently 31, creatinine 1.6, currently 1.10, glucose 112. TSH was 10. Stool was negative for C. difficile. Hemoglobin currently is 8.9 with an MCV of 73, platelets 335, white count 10.8. IMAGING As discussed pathology from the previous endoscopy was actually negative for any malignancy or H. pylori. IMPRESSION 1. Nausea, vomiting, abdominal pain, history of a large gastric ulcer, abnormal small bowel follow-through. Pathology noted on the small bowel follow-through is a large gastric ulcer. 2. Chronic anemia. In reviewing her old records this is stable. 3. Constipation. RECOMMENDATIONS 1. Gastric emptying study today as I suspect gastroparesis is an underlying issue for her. 2. Upper endoscopy in the morning to re-biopsy the gastric ulcer. 3. Supportive care. 4. Further recommendation will depend on the patient's clinical status and the above results. I would like to thank you for referring her to our office for consultation. The above plan was discussed in detail with the patient. Will continue to follow the patient along with you. Mona Sanz MD BSB/BT /8:16 AM /9:23 AM [id number]
[2017-05-18] MEDS ORDERED: METOCLOPRAMIDE HCL 10 MG/2 ML VIAL IV ONE (12:38)
[2017-05-18 13:00] VITALS: BP 139/58; PULSE 100; RESP 18; TEMP 98.2; O2SAT 96
[2017-05-18] MEDS: ACETAMINOPHEN/HYDROcodone 325 MG/7.5 MG TAB PO PRN ×2 (13:01→22:35)
--- NOTE | 2017-05-18 13:08 | RADRPT ---
EXAM DATE/TIME: 05/18/2017 09:49 [facility] COMPARISON: No previous studies available for comparison. INDICATIONS : Nausea and vomiting for three days. DOSE: 1.1 mCi Tc99m Sulfur Colloid Labeled Whole egg PO MEDICATONS: 1.) 5 mg Reglan IV at 90 minutes IMAGIN hrs MEDICAL HISTORY : Diabetes mellitus type 2. Hypertension. Gastroesophageal reflux disease. SURGICAL HISTORY : Tonsillectomy. ENCOUNTER: Initial ACUITY: 3 days PAIN SCALE: 3/10 LOCATION: Right upper quadrant TECHNIQUE: Following the oral ingestion of radiotracer-labeled meal, dynamic sequential images in the LIBYAN projec tion were acquired with simultaneous computer acquisition. The data set was decay-corrected. FINDINGS: LAG PHASE: There is 25 minutes before onset of gastric emptying. EMPTYING: Gastric emptying kinetics are linear. The decay-corrected, back-extrapolated half-time of emptying i s 39 minutes minutes. (Normal for this lab is 45- 90 minutes.) INTERVENTION: There was no response to Reglan. CONCLUSION: Normal gastric imaging study. Michael Garduno MD FACR on May 18, 2017 at 13:05 Board Certified Radiologist. This report was verified electronically.
[2017-05-18 16:00] VITALS: BP 139/74; PULSE 86; RESP 18; TEMP 98.1; O2SAT 98
[2017-05-18 20:00] VITALS: BP 146/71; PULSE 97; RESP 20; TEMP 97.5; O2SAT 98
[2017-05-19] VITALS: BP 145/66; PULSE 77; RESP 20; TEMP 96.5; O2SAT 100
[2017-05-19] MEDS: LEVOTHYROXINE SODIUM 112 MCG TAB PO SCH (06:15)
[2017-05-19] MEDS: LEVOTHYROXINE SODIUM 25 MCG TAB PO SCH (06:15)
[2017-05-19] MEDS: POTASSIUM CHLORIDE 10 MEQ CONTROLLED RELEASE TAB PO SCH (06:15)
[2017-05-19] MEDS: INSULIN ASPART SUPPLEMENTAL SCALE SQ SCH ×3 (06:19→16:00)
[2017-05-19 06:30] LABS: HEMATOCRIT 26.1 % (35.0-46.0)
[2017-05-19 06:40] LABS: REVIEW FLAG FINAL
[2017-05-19 06:47] LABS: POTASSIUM 3.6 MEQ/L (3.5-5.1)
[2017-05-19 06:50] LABS: BICARBONATE 25.9 MEQ/L (21.0-32.0)
[2017-05-19] MEDS: BRIMONIDINE TARTRATE 0.2% OPHT SOLN 5 ML BTL EACH EYE SCH (07:50)
[2017-05-19] MEDS: DORZOLAMIDE/TIMOLOL OPTH SOLN 10 ML BTL LEFT EYE SCH (07:50)
[2017-05-19] MEDS: DICYCLOMINE HCL 20 MG TAB PO SCH ×3 (07:51→16:51)
[2017-05-19] MEDS: HYDROCHLOROTHIAZIDE 25 MG TAB PO SCH (07:51)
[2017-05-19] MEDS: DOCUSATE SODIUM 50 MG/SENNA 8.6 MG TAB PO SCH (07:51)
[2017-05-19] MEDS: amLODIPine BESYLATE 5 MG TAB PO SCH (07:51)
[2017-05-19] MEDS: SODIUM CHLORIDE 0.9% FLUSH 10 ML FLUSH IV FLUSH SCH (07:52)
[2017-05-19] MEDS: PANTOPRAZOLE SOD 40 MG DELAYED RELEASE TAB PO SCH (07:52)
[2017-05-19] MEDS: PRAVASTATIN SOD 40 MG TAB PO SCH (07:52)
[2017-05-19 07:55] VITALS: BP 155/68; PULSE 85; RESP 18; TEMP 97.7; O2SAT 96
[2017-05-19 08:00] VITALS: BP 155/68; PULSE 85; RESP 18; TEMP 97.7; O2SAT 96
[2017-05-19] MEDS ORDERED: PROPOFOL 200 MG/20 ML AMP IV ONE (08:39)
--- NOTE | 2017-05-19 08:51 | GIPROC ---
[facility] [address] [place] [address], [id number] EGD PROCEDURE REPORT EXAM DATE: 05/19/2017 PATIENT NAME: Franci Jordan MR #: [id number] BIRTHDATE: 1950 ATTENDING: Mona Streeter MD ORDER #: [id number] GREENBELT: Corey Carcamo and Dary Burgos STATUS: inpatient INDICATIONS: The patient is a 66 yr old female here for an EGD due to abnormal ugi series, nausea, vomiting, anemia, history of gastric ulcer PROCEDURE PERFORMED: EGD w/ biopsy MEDICATIONS: None and Per Anesthesia. TOPICAL ANESTHETIC: none CONSENT: The patient understands the risks and benefits of the procedure and understands that these risks include, but are not limited to: sedation, allergic reaction, infection, perforation and/or bleeding. Alternative means of evaluation and treatment include, among others: physical exam, x-rays, and/or surgical intervention. The patient elects to proceed with this endoscopic procedure. medical equipment was checked for proper function. Hand hygiene and appropriate measures for infection prevention was taken. After the risks, benefits and alternatives of the procedure were thoroughly explained, Informed consent was verified, confirmed and timeout was successfully executed by the treatment team. The patient was anesthetized with topical anesthesia and the Pentax EG-[id number] endoscope was introduced through the mouth and advanced to the second portion of the duodenum. Retroflexed views revealed a hiatal hernia The gastroscope was then slowly withdrawn and removed. Gastritis antrum/body -biopsy large gastric antral ulcer-1 cm, clean base -multiple biopsies taken from base and margins duodenitis second portion-biopsy esophagitis distal esophagus-biopsy Schatzki's ring. ADVERSE EVENTS: There were no complications. IMPRESSIONS: 1. Gastritis antrum/body -biopsy large gastric antral ulcer-1 cm, clean base -multiple biopsies taken from base and margins duodenitis second portion-biopsy esophagitis distal esophagus-biopsy Schatzki's ring 2. Retroflexed views revealed a hiatal hernia RECOMMENDATIONS: 1. Await biopsy results. Biopsy results will not be ready for 7-10 days. If you don't hear from us in two weeks, call our office for biopsy results. 2. Anti-reflux regimen 3. Pantoprazole 40 mg po bid- 4 weeks carafate 1 gm po tid avoid NSAIDs ok to dc home from [facility] office 2 weeks egd in 6-8 weeks soft diet PATIENT CONDITION: stable DISPOSITION: Inpatient REPEAT EXAM: EGD pending biopsy results Mona Streeter MD eSigned: Mona Streeter MD 05/19/2017 8:50 AM cc: PATIENT NAME: Franci Jordan MR#: [id number]
[2017-05-19] MEDS: SUCRALFATE 1 GM TAB PO SCH ×2 (11:14→16:51)
[2017-05-19] MEDS: ACETAMINOPHEN/HYDROcodone 325 MG/7.5 MG TAB PO PRN ×2 (11:15→16:51)
[2017-05-19 12:00] VITALS: BP 153/72; PULSE 78; RESP 18; TEMP 97.7; O2SAT 100
[2017-05-19 14:52] LABS: TRANSFERRIN IRON PROFILE 247 MG/DL (200-360)
[2017-05-19 14:54] LABS: FERRITIN 8 NG/ML (8-252)
[2017-05-19] MEDS ORDERED: AMLO5 PO (15:57)
[2017-05-19] MEDS ORDERED: PANT40TA3 PO (15:57)
[2017-05-19] MEDS ORDERED: CARA1TAB6 PO (15:57)
--- NOTE | 2017-05-19 15:59 | HHI.DS ---
Discharge Summary Admission Date May 15, 2017 at 7:46 pm Discharge Date: May 19, 2017 Admitting Diagnosis sepsis, ARF, UTI (1) Gastroenteritis ICD Code: K52.9 (2) Acute kidney injury ICD Code: N17.9 (3) Hypertension ICD Code: I10 (4) Diabetes mellitus type II, controlled ICD Code: E11.9 (5) Hypothyroidism ICD Code: E03.9 Procedures EGD 05/19/2017 IMPRESSIONS: 1. Gastritis antrum/body -biopsy large gastric antral ulcer-1 cm, clean base -multiple biopsies taken from base and margins duodenitis second portion-biopsy esophagitis distal esophagus-biopsy Schatzki's ring 2. Retroflexed views revealed a hiatal hernia RECOMMENDATIONS: 1. Await biopsy results. Biopsy results will not be ready for 7-10 days. If you don't hear from us in two weeks, call our office for biopsy results. 2. Anti-reflux regimen 3. Pantoprazole 40 mg po bid- 4 weeks carafate 1 gm po tid avoid NSAIDs Brief History - From Admission Ms. Jordan is a pleasant 66 year old female with a history of hypertension, diabetes who presented to the ED on 05/15/2017 due to nausea, vomiting as well as abdominal pain that started approximately 3 days ago. Her last bowel movement was on 05/12/2017. In the last 3 days, she has been having nausea, vomiting and anorexia. She reports some sweating and chills but no fever. She also complains of left sided upper abdominal pain and some shortness of breath. Denies any changes in her bladder habits. CBC/BMP: 05/19/17 0540 05/19/17 0540 Significant Findings Laboratory Tests Test 05/17/17 05/19/17 07:10 05:40 Red Blood Count 3.84 MIL/MM3 (4.00-5.30) Hemoglobin 8.9 GM/DL 8.4 GM/DL (11.6-15.3) (11.6-15.3) Hematocrit 28.1 % 26.1 % (35.0-46.0) (35.0-46.0) Mean Corpuscular Volume 73.2 FL (80.0-100.0) Mean Corpuscular Hemoglobin 23.2 PG (27.0-34.0) Mean Corpuscular Hemoglobin 31.6 % Concent (32.0-36.0) Neutrophils (%) (Auto) 72.8 % (16.0-70.0) Neutrophils # (Auto) 7.9 TH/MM3 (1.8-7.7) Potassium Level 3.3 MEQ/L (3.5-5.1) Blood Urea Nitrogen 31 MG/DL (7-18) 24 MG/DL (7-18) Creatinine 1.10 MG/DL (0.50-1.00) Estimat Glomerular Filtration 60 ML/MIN (>89) 67 ML/MIN (>89) Rate Random Glucose 112 MG/DL 111 MG/DL (74-106) (74-106) Iron Level 21 MCG/DL (50-170) Percent Iron Saturation 6.1 % (20-50) Imaging Last Impressions Gastric Emptying Nuclear Medicine 05/18/17 0000 Signed Impressions: Service Date/Time: Thursday, May 18, 2017 09:49 - CONCLUSION: Normal gastric imaging study. Michael Garduno MD FACR Small Bowel X-Ray 05/17/17 0000 Signed Impressions: Service Date/Time: Wednesday, May 17, 2017 15:08 - CONCLUSION: Mass of the distal stomach, direct inspection would be recommended. Ernesto Alexis MD Abdomen X-Ray 05/17/17 0000 Signed Impressions: Service Date/Time: Wednesday, May 17, 2017 10:26 - CONCLUSION: No acute disease. Cristo Castle MD Abdomen/Pelvis CT 05/15/17 1848 Signed Impressions: Service Date/Time: Monday, May 15, 2017 18:55 - CONCLUSION: 1. Stable 9 mm noncalcified nodule in the left lung base. This represents a three-month interval since the prior study. A 6 month followup noncontrast chest CT is recommended. 2. Stable left adrenal adenoma. 3. Tiny less than 1 mm nonobstructing right renal calculus. 4. Small retrocardiac hiatal hernia. 5. The gallbladder remains unremarkable in appearance. 6. Nonobstructive bowel gas pattern. No oral contrast was given limiting the sensitivity. Roberto Duke MD PE at Discharge GENERAL: AOX3, NAD. SKIN: Warm and dry. HEAD: Normocephalic. EYES: No scleral icterus. No injection or drainage. NECK: Supple, trachea midline. No JVD or lymphadenopathy. CARDIOVASCULAR: Regular rate and rhythm without murmurs, gallops, or rubs. RESPIRATORY: Breath sounds equal bilaterally. No accessory muscle use. GASTROINTESTINAL: Abdomen soft, non-tender, nondistended. MUSCULOSKELETAL: No cyanosis, or edema. BACK: Nontender without obvious deformity. No CVA tenderness. Pt update on day of discharge Patient is doing well post EGD. No acute concerns. Denies any chest pain, shortness of breath, fever, chills. Pt Condition on Discharge: Good Discharge Disposition: Discharge Home Discharge Time: > 30 minutes Discharge Instructions DIET: Follow Instructions for: Diabetic Diet Activities you can perform: Regular-No Restrictions Follow up Referrals: Gastroenterology - 2 Weeks with Mona Streeter MD PCP Follow-up - 1 Week New Orders: CT THORAX W/O CONTRAST (CHEST) - 6 Months New Medications: Amlodipine (Norvasc) 5 Mg Tab 5 MG PO DAILY Blood Pressure Management #30 TAB Sucralfate (Carafate) 1 Gm Tab 1 GM PO TIDAC GI #90 TAB Continued Medications: Brimonidine Opth Drops (Brimonidine Opth Drops) 0.2% Soln 1 DROP EACH EYE BID Intraocular pressure #1 Ref 0 BOTTLE Dicyclomine (Dicyclomine) 20 Mg Tab 20 MG PO QID Bowel Management #120 Ref 0 TAB Dorzolamide-Timolol Opth Drops (Dorzolamide-Timolol Opth Drops) 22.3-6.8 Mg/Ml Soln 1 DROP LEFT EYE BID Glaucoma Ref 0 BOTTLE Hydrochlorothiazide (Hydrochlorothiazide) 25 Mg Tab 25 MG PO DAILY #30 Ref 0 TAB Levothyroxine (Synthroid) 137 Mcg Tab 137 MCG PO DAILY Thyroid #30 Ref 0 TAB Metformin (Metformin) 500 Mg Tab 500 MG PO DAILY With a meal Blood Sugar Management #30 Ref 0 TAB Pantoprazole (Pantoprazole) 40 Mg Tab 40 MG PO Q12HR gi #60 TAB (This prescription has been renewed) Simvastatin (Simvastatin) 20 Mg Tab 20 MG PO DAILY Cholesterol Management #30 Ref 0 TAB Tammy Mclain DO May 19, 2017 3:59 pm
[2017-05-19 16:00] VITALS: BP 126/57; PULSE 88; RESP 18; TEMP 97.4; O2SAT 99
== END 2017-05-19 19:43 | disposition home or self-care (01) | DRG 392 ==
LOC: PHED 17:35 → PHEDA 19:46 → PH3A 21:15
PROVIDERS: ADMIT Hospitalist; ATTEND Hospitalist
PROC: 0DB68ZX Excision of Stomach, Via Natural or Artificial Opening Endoscopic, Diagnostic (ICD-10-PCS; 2017-05-19)
PROC: 0DB38ZX Excision of Lower Esophagus, Via Natural or Artificial Opening Endoscopic, Diagnostic (ICD-10-PCS; 2017-05-19)
PROC: 0DB98ZX Excision of Duodenum, Via Natural or Artificial Opening Endoscopic, Diagnostic (ICD-10-PCS; principal; 2017-05-19 08:10)
DX: K52.9 Noninfective gastroenteritis and colitis, unspecified (principal); N17.9 Acute kidney failure, unspecified; K22.2 Esophageal obstruction; Z68.41 Body mass index [BMI] 40.0-44.9, adult; E66.9 Obesity, unspecified; I10 Essential (primary) hypertension; E11.9 Type 2 diabetes mellitus without complications; Z79.84 Long term (current) use of oral hypoglycemic drugs; D64.9 Anemia, unspecified; K25.9 Gastric ulcer, unspecified as acute or chronic, without hemorrhage or perforation; E03.9 Hypothyroidism, unspecified; K44.9 Diaphragmatic hernia without obstruction or gangrene; K21.9 Gastro-esophageal reflux disease without esophagitis; K20.9 Esophagitis, unspecified
CPT/HCPCS: 74000; 74176; 74250; 78264; 80048; 80053; 81001; 82105; 82378; 82550; 82552; 82728; 82948; 83540; 83550; 83605; 83690; 83735; 83880; 84484; 85014; 85018; 85025; 86301; 87040; 87086; 88305; 88312; 93005; 96361; 96365; 96375; A9541; J0744; J0780; J1200; J1644; J1815; J2270; J2405; J2543; J2765; J7030; Q9963

== ENCOUNTER → 2017-07-08 | Day surgery (SDC) | payer MEDICARE ==
[~2017-07-08] MED LIST changes: +AMLO5 PO; +AMLO5TAB2 PO; +ARTH650T6 PO; -ASPI1TAB69 PO; +BENT20TA PO; +CARA1TAB6 PO; -CLOTCRE TOPICAL; +DORZ1SOL2 OU; +HYDR25TA5 PO; -LACT PO; -MACR100C2 PO; -PROM25TA5 PO; +PROPOFOL 200 MG/20 ML AMP IV ONE; +TYLE650T9 PO; -VERA1TAB17 PO
--- NOTE | 2017-07-08 12:18 | GIPROC ---
[facility] [address] [facility], [address] EGD PROCEDURE REPORT EXAM DATE: 07/08/2017 PATIENT NAME: Franci Jordan MR #: [id number] BIRTHDATE: 1950 ATTENDING: Irene Feldman MD ORDER #: [id number] GROCERY CLERK STOCKING: Ciera Coreas RN STATUS: outpatient INDICATIONS: The patient is a 66 yr old female here for an EGD due to follow up on ulcer PROCEDURE PERFORMED: EGD w/ biopsy MEDICATIONS: None and Per Anesthesia. TOPICAL ANESTHETIC: CONSENT: The patient understands the risks and benefits of the procedure and understands that these risks include, but are not limited to: sedation, allergic reaction, infection, perforation and/or bleeding. Alternative means of evaluation and treatment include, among others: physical exam, x-rays, and/or surgical intervention. The patient elects to proceed with this endoscopic procedure. medical equipment was checked for proper function. Hand hygiene and appropriate measures for infection prevention was taken. After the risks, benefits and alternatives of the procedure were thoroughly explained, Informed consent was verified, confirmed and timeout was successfully executed by the treatment team. The patient was anesthetized with topical anesthesia and the [id number] ([id number]) endoscope was introduced through the mouth and advanced to the second portion of the duodenum. Retroflexed views revealed no abnormalities The gastroscope was then slowly withdrawn and removed. ESOPHAGUS: There was LA Class A esophagitis noted. A biopsy was performed using cold forceps. Sample sent for histology. STOMACH: There was erythematous moderate gastritis. DUODENUM: The duodenal mucosa appeared normal in the bulb and second portion of the duodenum. ADVERSE EVENTS: There were no complications. IMPRESSIONS: 1. There was LA Class A esophagitis noted; biopsy was performed 2. There was erythematous gastritis 3. Normal duodenal mucosa in the bulb and second portion of the duodenum 4. Retroflexed views revealed no abnormalities RECOMMENDATIONS: 1. Await biopsy results. Biopsy results will not be ready for 7-10 days. If you don't hear from us in two weeks, call our office for biopsy results. 2. Anti-reflux regimen 3. Continue PPI PATIENT CONDITION: stable DISPOSITION: Home REPEAT EXAM: Return 3 years EGD pending biopsy results Irene Feldman MD eSigned: Irene Feldman MD 07/08/2017 12:17 PM cc: Goldie Looney [facility] PATIENT NAME: Franci Jordan MR#: [id number]
== END | disposition home or self-care (01) ==
LOC: ESDC 10:49
PROVIDERS: ATTEND Internal Medicine Gastroenterology
DX: K25.9 Gastric ulcer, unspecified as acute or chronic, without hemorrhage or perforation (principal); K20.9 Esophagitis, unspecified; K29.70 Gastritis, unspecified, without bleeding
CPT/HCPCS: 00740; 43239; 88305; J3010

== ENCOUNTER → 2017-10-23 | Outpatient (CLI) | payer MEDICARE ==
[~2017-10-23] MED LIST changes: +ALBUAER3 INH; +AMLO10TA2 PO; -AMLO5 PO; -AMLO5TAB2 PO; -ARTH650T6 PO; -BENT20TA PO; +BLOOD PRESSURE1 M20; +CLOT1CRE TOPICAL; -DORZ1SOL2 OU; -MELO-1 PO; +MELO15TA20 PO; -PROPOFOL 200 MG/20 ML AMP IV ONE; +SYMB160A INH; +TYLE325T PO; -TYLE650T9 PO
[2017-10-23 09:07] LABS: ALT (GPT) 12 U/L (10-53); ANION GAP 7 MEQ/L (5-15); AST (GOT) 14 U/L (15-37); BICARBONATE 26.8 MEQ/L (21.0-32.0); BLOOD UREA NITROGEN 16 MG/DL (7-18); CHLORIDE 106 MEQ/L (98-107); GLOMERULAR FILTRATION RATE 60 ML/MIN (>89); GLUCOSE,FASTING 103 MG/DL (74-99); SODIUM (NA) 140 MEQ/L (136-145)
[2017-10-23 09:17] LABS: ALKALINE PHOSPHATASE 107 U/L (45-117); LDL CHOLESTEROL 114 MG/DL (0-99); TOTAL BILIRUBIN ADULT 0.2 MG/DL (0.2-1.0)
[2017-10-23 13:36] LABS: HEMOGLOBIN A1a 2.2 %; HEMOGLOBIN A1b 1.6 %; HEMOGLOBIN Ao 83.5 %; HEMOGLOBIN F 0.2 %; HEMOGLOBIN P3 3.7 %
== END ==
LOC: CLAB 08:19
PROVIDERS: ATTEND Family Medicine
DX: I10 Essential (primary) hypertension (principal); E11.9 Type 2 diabetes mellitus without complications
CPT/HCPCS: 36415; 80053; 80061; 83036; 84443

== ENCOUNTER → 2018-01-19 | Outpatient (CLI) | payer MEDICARE ==
[2018-01-19 09:55] LABS: HEMATOCRIT 33.5 % (35.0-46.0); HEMOGLOBIN 10.6 GM/DL (11.6-15.3); MEAN CELL VOLUME 72.6 FL (80.0-100.0); MEAN CORPUSCULAR HEMOGLOBIN 22.9 PG (27.0-34.0); MEAN CORPUSCULAR HGB CONC 31.6 % (32.0-36.0); MEAN PLATELET VOLUME 7.5 FL (7.0-11.0); PLATELET COUNT 352 TH/MM3 (150-450); RED BLOOD COUNT 4.62 MIL/MM3 (4.00-5.30); RED CELL DISTRIBUTION WIDTH 16.3 % (11.6-17.2); WHITE BLOOD COUNT 10.6 TH/MM3 (4.0-11.0)
[2018-01-19 10:31] LABS: AST (GOT) 10 U/L (15-37); BICARBONATE 27.1 MEQ/L (21.0-32.0); BLOOD UREA NITROGEN 23 MG/DL (7-18); CALCIUM 8.9 MG/DL (8.5-10.1); CHLORIDE 103 MEQ/L (98-107); GLOMERULAR FILTRATION RATE 67 ML/MIN (>89); GLUCOSE,FASTING 107 MG/DL (74-99); SODIUM (NA) 139 MEQ/L (136-145)
[2018-01-19 10:40] LABS: ALBUMIN 3.5 GM/DL (3.4-5.0); ALKALINE PHOSPHATASE 104 U/L (45-117); ALT (GPT) 12 U/L (10-53); CHOLESTEROL 184 MG/DL (120-200); CHOLESTEROL/ HDL RATIO 2.54 RATIO; FREE T4 1.27 NG/DL (0.76-1.46); HDL CHOLESTEROL 72.2 MG/DL (40.0-60.0); LDL CHOLESTEROL 96 MG/DL (0-99); TOTAL BILIRUBIN ADULT 0.2 MG/DL (0.2-1.0); TOTAL PROTEIN 7.5 GM/DL (6.4-8.2); TRIGLYCERIDES 78 MG/DL (42-150)
[2018-01-19 16:13] LABS: HEMOGLOBIN A1C 6.4 % (4.3-6.0)
== END ==
LOC: CLAB 09:17
PROVIDERS: ATTEND Family Medicine
DX: I10 Essential (primary) hypertension (principal); E11.9 Type 2 diabetes mellitus without complications; E03.9 Hypothyroidism, unspecified; Z87.19 Personal history of other diseases of the digestive system
CPT/HCPCS: 36415; 80053; 80061; 83036; 84439; 84443; 85027

== ENCOUNTER → 2018-03-30 | Outpatient (CLI) | payer MEDICARE ==
[2018-03-30 10:43] LABS: ALBUMIN 3.5 GM/DL (3.4-5.0); ALKALINE PHOSPHATASE 110 U/L (45-117); ALT (GPT) 14 U/L (10-53); AST (GOT) 19 U/L (15-37); BLOOD UREA NITROGEN 14 MG/DL (7-18); CALCIUM 9.4 MG/DL (8.5-10.1); CREATININE 1.05 MG/DL (0.50-1.00); GLOMERULAR FILTRATION RATE 63 ML/MIN (>89); GLUCOSE,FASTING 117 MG/DL (74-99); TOTAL BILIRUBIN ADULT 0.3 MG/DL (0.2-1.0); TOTAL PROTEIN 7.9 GM/DL (6.4-8.2)
[2018-03-30 10:44] LABS: BICARBONATE 25.8 MEQ/L (21.0-32.0); CHLORIDE 104 MEQ/L (98-107); SODIUM (NA) 139 MEQ/L (136-145)
== END ==
LOC: CLAB 09:28
PROVIDERS: ATTEND Family Medicine
DX: I10 Essential (primary) hypertension (principal)
CPT/HCPCS: 36415; 80053